=== PATIENT | female | born 1965 | race Caucasian/White ===

== ENCOUNTER 2023-12-23 17:08 | Inpatient (IN) | payer OTHER, SELFPAY ==
[2023-12-23] VITALS (32 sets, daily range): BP systolic 69–177; BP diastolic 10–133
--- NOTE | 2023-12-23 15:24 | ED.GENMED ---
History of Present Illness
General
Chief Complaint: Change in Mental Status
Source: ambulance crew
Time Seen by Provider: 12/23/23 15:16
Travel History
Have you had any contact with someone who has COVID-19?: No
Do you have any symptoms of coronavirus? Fever > 100 degrees, chills, cough, shortness of breath, sore throat, loss of taste or smell, muscle aches, or headache?: No
History of Present Illness
History of Present Illness:
58-year-old female presents to the emergency room for evaluation of altered mental status. Patient has a history of schizophrenia. She evidently also recently diagnosed with Parkinson's disease. Manic state the patient was started on a medication
for Parkinson's, [facility] pharmacy search does not have new medication listed as being filled through insurance. Per medics the patient began not acting herself about 4 days ago. Today she is not speaking but it is unclear exactly when the
nonverbal component began. Patient not answering questions.
Past History
Past History
ED Past Medical History: Other (Schizophrenia)
Social History
Tobacco: Non-smoker
Alcohol: Occasional
Family History
Family History: Negative Diabetes, Hypertension or CAD
Phy Exam
Physical Exam
Physical Exam:
General: Awake, Alert, nonverbal. No acute distress.
Vitals: Hypertensive
Head: Atraumatic
Eyes: Pupils equal, EOMI
Throat: Airway intact, no exudates
Neck: Trachea midline
Lungs: Clear and equal b/l
Heart: Regular rate, no murmurs
Abd: Soft, Nontender, No pulsatile mass
Neuro: Cranial nerves intact, patient will hold arms and legs up for extended period time, she does not respond verbally to any questions.
Skin: Warm, dry, no rash
Extremities: pulses equal b/l, no edema
Course
Orders/Labs/Results
Orders:
Orders
12/23/23 Breakfast
NPO
Allow oral meds: No
Allow clear liquids: No
12/23/23 15:16
Electrocardiogram (*1) Urgent
Reason for Study: Other
Other Reason for Exam: Possible Stroke
Cardiac Monitoring- Treatment ONCE
IV Insert/Care/Rem.- Treatment PRN
12/23/23 15:17
CT Head W/o Cont STROKE ALERT Urgent
Reason For Exam: aphasia
12/23/23 15:19
Alcohol Urgent
Cardiovascular Evaluation Urgent
Complete Blood Count/With Diff Urgent
Comprehensive Metabolic Panel Urgent
Ferritin Urgent
Folate Urgent
Glycohemoglobin (HgbA1c) Urgent
PTT Urgent
Prothrombin Time Urgent
TSH Reflex To Free T4 Urgent
Troponin I Urgent
Vitamin B12 Urgent
12/23/23 15:20
CT Head/Neck Ang STROKE ALERT Urgent
Comment:
Reason For Exam: aphasia
12/23/23 15:24
Speech Screening from Jaky Routine
12/23/23 15:25
Add On- LAB Routine
Tests Added?: folate, ferritin, TSH reflex, B12, hbA1c, lipid panel, alcohol
12/23/23 15:42
EEG Routine Urgent
Reason for Exam: altered mental status
12/23/23 15:50
NIH Stroke Scale As Directed
Neurological Checks As Directed
Frequency: Per unit guidelines
12/23/23 16:00
Aspirin 300 mg RECTAL DAILY
12/23/23 16:26
Potassium Chloride [KCl] 20 meq 0.9% Sodium Chloride 250 ml [Nss] 250 ml IV NOW
12/23/23 16:51
Admit/Transfer Patient As Directed
Co-Sign Provider:
Level of Care: Inpatient admission
Assign to:: ICU
Physician / Group: Anabella
Diagnosis: Acute/Sever Hyponatremia
Reason for Hospitalization: hypertonic saline
Expected length of stay greater than two midnights?: Yes
ELOS- Estimated Length of Stay in days: 3
I certify the patient meets the requirements for IP care: Yes
12/23/23 16:53
Code Status As Directed
Resuscitation Status: Full Code
Lorazepam [Ativan] 2 mg .ROUTE .STK-MED ONE
12/23/23 17:00
3% Sodium Chloride 250 ml [Sodium Chloride 3%] 250 ml IV ONCE
12/23/23 17:08
Levetiracetam Injectable [Keppra] 1,500 mg IV NOW STA
12/23/23 17:48
Osmolality, Random Urine Urgent
Date Specimen was Collected: 12/23/23
Time Specimen was Collected: 16:00
Urinalysis Reflex To Culture Routine
Date Specimen was Collected: 12/23/23
Time Specimen was Collected: 16:00
Urine Drug Abuse Screen Routine
Date Specimen was Collected: 12/23/23
Time Specimen was Collected: 16:00
Urine Sodium Urgent
Date Specimen was Collected: 12/23/23
Time Specimen was Collected: 16:00
12/23/23 18:05
Acetaminophen [Tylenol/Feverall] 650 mg RECTAL Q4HPRN PRN
Enoxaparin Sodium [Lovenox] 40 mg SC QPM
Lorazepam [Ativan] 1 mg IV Q4HPRN PRN
12/23/23 18:05
Service Captain Consult Routine
Consulting Provider: Cricket Avila
Was physician already notified: Yes
NEPHROLOGY CONSULT Routine
Consulting Provider: Christopher Rowe V.
Was physician already notified: Yes
NEUROLOGY CONSULT Routine
Consulting Provider: Luan Marquez
Was physician already notified: Yes
PSYCHIATRY CONSULT Routine
Consulting Provider: Salvador Finn
Was physician already notified: Yes
Activity As Directed
Activity Level: Bedrest
I&O [Intake/ Output] As Directed
Frequency: q12h
Precautions As Directed
Type of Precautions: Seizure
Vital Signs As Directed
Frequency: Per unit guidelines
Weight As Directed
Frequency: Daily
DX Deep Vein Thrombosis Video Routine
12/23/23 20:21
BMP [Basic Metabolic Panel] Q3H
12/23/23 23:00
BMP [Basic Metabolic Panel] Q3H
12/24/23 02:00
BMP [Basic Metabolic Panel] Q3H
12/24/23 05:00
BMP [Basic Metabolic Panel] Q3H
12/24/23 06:00
Complete Blood Count/No Diff IN AM
Cortisol, Random IN AM
12/24/23 08:00
BMP [Basic Metabolic Panel] Q3H
12/24/23 11:00
BMP [Basic Metabolic Panel] Q3H
12/24/23 14:00
BMP [Basic Metabolic Panel] Q3H
12/24/23 17:00
BMP [Basic Metabolic Panel] Q3H
Abnormal Lab Results
12/23/23
15:19
RBC 3.03 L 10^6/uL
(4.20-5.40)
Hgb 9.7 L g/dL
(12.0-16.0)
Hct 25.2 L %
(37.0-47.0)
MCH 32.0 H pg
(27.0-31.0)
MCHC 38.5 H g/dL
(33.0-37.0)
Absolute Neuts (auto) 6.9 H 10^3/uL
(1.4-6.5)
Absolute Lymphs (auto) 1.0 L 10^3/uL
(1.2-3.4)
Neutrophils % 82.0 H %
(42.2-75.2)
Lymphocytes % 11.2 L %
(20.5-51.1)
Sodium 106 L* mmol/L
(135-145)
Potassium 3.3 L mmol/L
(3.5-5.1)
Chloride 69 L mmol/L
(98-107)
Glucose 125 H mg/dl
(70-99)
Vitamin B12 979 H pg/ml
(239-931)
Folate > 20.0 H ng/ml
(2.76-20)
12/23/23 15:19
12/23/23 15:19
Vital Signs
Initial and Last Documented VS:
Initial Vital Signs
Pulse Resp BP Pulse Ox
111 18 177/95 99
12/23/23 15:12 12/23/23 15:12 12/23/23 15:12 12/23/23 15:12
Last Documented Vital Signs
Temp Pulse Resp BP Pulse Ox
98.3 F 73 14 88/59 97
12/23/23 18:54 12/23/23 22:30 12/23/23 22:30 12/23/23 22:30 12/23/23 22:30
MDM/Problems Addressed
Differential Diagnosis Includes:
CVA, sz, medication effect/adverse reaction, electrolyte abn,
MDM/Problems Addressed:
Patient presents to the emergency room for altered mental status and nonverbal. Patient made a stroke alert after initial evaluation as his acute ischemic event certainly on the differential. Dr. Marquez came to evaluate the patient. I did
discuss the patient's presentation with her and he did verify that she did not have a sudden onset of symptoms today but rather gradual onset over several days. Patient does have a history of schizophrenia but it is well-controlled on her
current medication regiment. Patient not a TNK candidate given the onset of symptoms was over several days. CTA did not show large vessel occlusion. Labs ultimately returned which showed the patient had profound hyponatremia. I initially
discussed the patient's presentation and treatment of hyponatremia with Dr. Brenner. Start hypertonic saline at 30 cc an hour. Patient will be admitted to the intensive care unit.
*Radiology
Radiology exam reviewed: radiology read reviewed
*Pulse Oximetry
Patient hypoxic: no
*EKG
Interpreted by ED Provider?: Yes
Heart Rate: 107
Rate: tachycardiac
Rhythm: sinus tachycardia
[place]: normal axis
Interval: normal interval
QRS Pattern: normal QRS
Ischemia: no ischemia
*Product Steward Interpretation
Rate: tachycardiac
Interpretation: abnormal
Rhythm: sinus tachycardia
*Critical Care Note
Total Time (30-74mins, 75-104mins- exclusive of procedures): 60 min
comment:
Critical care statement: A total of 60 minutes of critical care time was provided for this patient. This includes management of unstable vital signs, evaluation of the patient at bedside, reviewing the patient's pertinent medical records, discussion
with consultants, review of old EKGs and review of pertinent medical records. This time with separate from time utilized to perform the aforementioned documented procedures
Patient Management
Social determinants of health affecting care: Living situation and Other (Mental illness)
Discussion with other providers: Hospitalist
Update Note
Update Note:
1718: Called to room at about 1645 for pt having seizure activity. Pt was on EEG at the time. Pt postictal on my arrival. HR/BP/Pulse ox acceptable. 1mg of lorazepam given. Then I ordered 100ml of 3% saline over 12 minutes. Discussed with
Duncan who recommended 1500mg of keppra iv which was given as well. Discussed with Dr. Rowe who came to bedside. He agreed with hypertonic saline bolus. Repeat bmp in 15 to 30 minutes. Seizure activity did appear to vandana.
ED Attending Note
-
Portions of this chart may have been created with voice recognition software.� Occasional wrong word or��sound alike� substitutions may have occurred due to the inherent limitations of voice recognition software.
Discharge Plan
Departure
Patient Disposition: Admit
Date of Disposition: 12/23/23
Time of Disposition: 16:21
Admit to: ICU
Presentation/result/management discussed w/ accepting MD/DO: Hospitalist
Condition: Critical
Discharge Problem:
Acute hyponatremia
Interventions
Interventions:
*Risk Screen - Suicide Last Done: 12/23/23 15:12
*General Assessment Last Done: 12/23/23 15:12
*Neglect/Abuse Screening Last Done: 12/23/23 15:12
ED- Fall Risk Assessment Last Done: 12/23/23 15:20
*ED COVID-19 Vaccine History Last Done: 12/23/23 15:12
*Nursing Disposition Last Done: 12/23/23 18:36
ED- Pulmonary Assessment Last Done: 12/23/23 15:20
ED- Neurological Assessment Last Done: 12/23/23 15:20
ED- Cardiac Assessment Last Done: 12/23/23 15:20
ED Swallowing Screen Last Done: 12/23/23 15:20
Discharge Date and Time
Discharge Date/Time: 12/23/23 18:37
[2023-12-23 15:37] LABS: INR 1.01; PT 13.1 Sec (11.4-14.6)
[2023-12-23 15:38] LABS: APTT 28.5 Sec (23.4-35.0)
[2023-12-23 15:50] LABS: Troponin I < 0.012 ng/ml
--- NOTE | 2023-12-23 15:51 | CON.NEURO4 ---
Consultation - Neurology 4
-
CONSULTING PHYSICIAN: Berta Marquez
REFERRING PHYSICIAN: ER
DICTATED BY: Berta Marquez
DATE/TIME OF REQUEST: 12/23/23
DATE/TIME OF CONSULTATION: 12/23/23
Reason for Consultation: Stroke alert speech abnormality
History of Present Illness:
Patient is a 58-year-old woman with a past medical history of paranoid schizophrenia, hypertension, presenting to the hospital with encephalopathy and abnormal speech worsened today compared to previous days.
In speaking with patient's over the phone, patient has not been her normal self for around 7 days according to her . Around 1 week ago she started on amantadine for about 3 to 4 days and due to worsening mental status and seeming
like less talkative and less active it was stopped around 3 days ago. There have otherwise been no changes in medications. Patient has been on a stable regimen of hydrochlorothiazide, amlodipine, losartan, risperidone and sertraline.
Amantadine had been prescribed previously by primary care doctor and only taking on an intermittent basis, apparently for Parkinson's-like symptoms. She does have tremor.
Patient had been less talkative and not as responsive and seems to go from 60 to 0 miles an hour per her in the past 7 days, has not seen any overt loss of consciousness or seizure activity. No recent illnesses and seems normal p.o. intake.
She had a hair appointment earlier today and did not talk very much but was able to voice what kind of haircut she wanted.
In the past patient had an ER visit and seem to be on Invega around the year of 2012 but has not been on this medication in years. Has had psychiatric care at [facility]. Sees her PCP regularly. No history of TIA or stroke.
Sodium level 106 in the ED.
Past Medical History: Paranoid schizoprenia, drug induced parkinsonism, hypertension
Surgical History: Right ankle surgery
Family History: [place]
Social History: lives at home with her
Allergies: No known drug allergies
Review of Symptoms:
Unable to obtain with mental status
Physical Exam:
Middle-aged woman appears ill with altered mental status no overt distress, normocephalic with dry mucous membranes eyes are clear neck supple with no masses mildly rigid neck with no overt meningismus, heart rate regular breathing unlabored abdomen
soft nontender no lower extremity edema is seen
Neurologic Examination:
Patient is awake with eyes open spontaneously and does track the examiner throughout the room, there is paucity of spontaneous speech with occasionally some mouthing of words that are an audible, patient does occasionally show comprehension of
simple commands and she will stick out her tongue inconsistently to command.
Cranial nerves shows no ptosis, pupils 3 mm equal round react light bilaterally, blinks to threat in all quadrants of vision with lower quadrant tropia, resting gaze is midline and extraocular moods are full as she tracks examiner through the right,
face is grossly symmetric, unable to tell if any dysarthria present
Patient has resting tremor bilaterally in the wrists, mild cogwheel rigidity in the right wrist. No pronator drift patient is able to hold the arms above her head in a symmetric manner with no drift demonstrating at least symmetric 4/5 shoulder
abduction strength and is able to lift the legs above the bed and sustained them for 10 seconds showing at least 4/5 hip flexion strength bilaterally. Mild bradykinesia and parkinsonism is evident.
No clonus or hyperreflexia is present 2+ symmetric biceps triceps brachialis and patella
No incoordination or ataxia
Neuro Imaging:
CT head noncontrast unremarkable no acute changes of stroke or hemorrhage
CTA head and neck no intracranial occlusion or carotid stenosis or occlusion seen
Impressions
1. Encephalopathy is highly likely to be due to symptomatic hyponatremia which is severe.
2. Patient has history of paranoid schizophrenia maintained on fdc antipsychotics
3. 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
4. Recent starting of amantadine for above symptoms of parkinsonism appears to be the only recent medication change. Is on HCTZ. Amantadine has potential for SIADH and hyponatremia, additionally is on SSRI sertraline but has been on this for
years.
IV Tenecteplase/IAT candidacy: Not a candidate for tenecteplase due to not having diagnosis of acute ischemic stroke as the patient has severe hyponatremia as the most likely cause of her symptoms, no intracranial occlusion on CTA of the head and
neck not a candidate for IAT
Recommendations:
1. Would check EEG urgently
2. Urgent correction of symptomatic hyponatremia with close following of sodium to ensure no overcorrection
3. Hold any further doses of amantadine
4. Neurologic checks
5. Not recommending aspirin or MRI brain or treating as stroke
Discussed patient care with: ER
[2023-12-23 15:56] LABS: ALT (SGPT) 20 U/L (0-35); AST (SGOT) 32 U/L (14-36); Albumin 4.9 g/dl (3.5-5.0); Alkaline Phosphatase 113 U/L (38-126); Blood Urea Nitrogen 16 mg/dl (7-17); Calcium 9.4 mg/dl (8.4-10.2); Carbon Dioxide 26 mmol/L (22-30); Chloride 69 mmol/L (98-107); Glucose 125 mg/dl (70-99); HDL Cholesterol 100 mg/dl; LDL Cholesterol, Calculated 59 mg/dl; Potassium 3.3 mmol/L (3.5-5.1); Sodium 106 mmol/L (135-145); Total Bilirubin 0.8 mg/dl (0.2-1.3); Total Cholesterol 175 mg/dl (50-199); Total Protein 7.7 g/dl (6.3-8.2); Triglyceride 82 mg/dl (10-149); Very Low Density Lipoprotein 16 mg/dl (0-30); eGFR > 60.00
[2023-12-23 16:01] LABS: Alcohol None Detected
--- NOTE | 2023-12-23 16:33 | W.CON.NEPH ---
Consultation
-
Date/Time Consultation Requested: 12/23/2023 4:10 PM
Date/Time Consultation Performed: 12/23/2023 4:20pm
Requesting Provider: Anabella
Performing Provider: Soledad
Reason for Consultation: Hypoantremia (106)
Medical History
-
Chief Complaint: Hyponatremia
History of Present Illness:
The patient is a 58-year-old female with a past medical history of schizophrenia currently maintained on Zoloft amantadine and risperidone. She has a history of hypertension for which she has been maintained on the combinations of losartan
hydrochlorothiazide and amlodipine. The patient presented to the hospital today with change of mental status and a sodium of 106. The patient has not been her normal self for around 7 days according to her . Around 1 week ago she started
on amantadine for about 3 to 4 days and due to worsening mental status and seeming like less talkative and less active it was stopped around 3 days ago. There have otherwise been no changes in medications. Patient has been on a stable regimen of
hydrochlorothiazide, amlodipine, losartan, risperidone and sertraline.
Amantadine had been prescribed previously by primary care doctor and only taking on an intermittent basis, apparently for Parkinson's-like symptoms. She does have tremor.
Patient had been less talkative and not as responsive and seems to go from 60 to 0 miles an hour per her in the past 7 days, has not seen any overt loss of consciousness or seizure activity. No recent illnesses and seems normal p.o. intake.
She had a hair appointment earlier today and did not talk very much but was able to voice what kind of haircut she wanted.
Past Medical History
Paranoid schizophrenia
Hypertension
Social History
Tobacco: Non-Smoker
Alcohol: None
Family History
No chronic kidney disease
Allergies / Home Medications
Allergy/AdvReac Type Severity Reaction Status Date / Time
ham,aguirre , sausage,pork Allergy diarrhea Uncoded 04/06/13 06:10
roast
�Medication �Instructions �Recorded �Confirmed �Type
aspirin 325 mg tablet (Ginette 325 mg PO DAILY 06/20/11 04/06/13 History
Aspirin)
calcium carbonate 1,000 mg-vitamin 2 ea PO DAILY 06/20/11 04/06/13 History
D3 20 mcg (800 unit) tablet
fexofenadine-pseudoephedrine ER 1 ea PO DAILY 06/20/11 04/06/13 History
180 mg-240 mg tablet,ext.release
24 hr (Diana-D 24 Hour)
miconazole nitrate 2 % topical 1 applic topical BID 06/20/11 04/06/13 History
cream (Antifungal (miconazole))
paliperidone 9 mg tablet,extended 9 mg PO DAILY 04/06/13 04/06/13 History
release 24 hr (Invega)
Review of Systems
-
Unable to obtain full review of systems at this time due to: Patient Non Verbal
History Source: Patient and Family
All other systems: Negative unless noted
Constitutional: No Symptoms
EENT: No Symptoms
Respiratory: No Symptoms
Cardiac: No Symptoms
Abdomen/GI: No Symptoms
: No Symptoms
Musculoskeletal: No Symptoms
Skin: No Symptoms
Neurological: Other (Increasing confusion over the past 7 days)
Endocrine: No Symptoms
Hematologic/Lymphatic: No Symptoms
Physical Exam
Vital Signs
Vital Signs
Pulse Resp BP Pulse Ox
106 16 177/95 100
12/23/23 15:45 12/23/23 15:45 12/23/23 15:14 12/23/23 15:45
Lab Results
Sodium 106 mmol/L (135-145) L* 12/23/23 15:19
Potassium 3.3 mmol/L (3.5-5.1) L 12/23/23 15:19
Chloride 69 mmol/L (98-107) L 12/23/23 15:19
Carbon Dioxide 26 mmol/L (22-30) 12/23/23 15:19
BUN 16 mg/dl (7-17) 12/23/23 15:19
Creatinine 0.6 mg/dL (0.6-1.0) 12/23/23 15:19
eGFR > 60.00 12/23/23 15:19
Glucose 125 mg/dl (70-99) H 12/23/23 15:
Calcium 9.4 mg/dl (8.4-10.2) 12/23/23 15:
Albumin 4.9 g/dl (3.5-5.0) 12/23/23 15:
Physical Exam
General: Awake and alert but nonverbal,non toxic
HEENT: PERRL, EOMI, Anicteric, Conjunctivae Clear, Ear/Nose Intact, Hearing Normal, Oropharynx Clear/Moist, Dentition Intact, Facial Symmetry, Neck Supple, Neck: Trachea Midline, No JVD and No Thyromegaly, no Bruits
Respiratory: Clear to auscultation bilaterally with normal lung exersion
Cardiac: S1/S2 and Regular Rate/Rhythm
Breast: Deferred by me
Abdomen: Soft, Nontender, Nondistended, Normal Bowel Sounds and No Hepatosplenomegaly,obese
Rectal: Deferred by Provider
Genito-urinary: No Costovertebral Tenderness
Extremities: No Clubbing, No Cyanosis and No Edema
Skin: No Rash or open lesions
Neuro: Pupils reactive, gaze fixed forward, left arm tremor, follows some commands, can move all 4 limbs independently
Hematologic/Lymphatic: No Cervical Lymphadenopathy, No Submandibular Lymphadenopathy and No Supraclavicular Lymphadenopathy
Psych: Flat ,withdrawn, currently nonverbal
Vascular: plus 2 pedal and radial pulses
Data Reviewed
-
Radiology: Image Personally Visualized and interpreted and Report Reviewed by me
CT Scan: Report Reviewed by me (CT of head head and neck CTA reviewed noted 3 mm anterior communicating aneurysm, thyroid mass)
Medical Tests (Nuc Med, Echo etc): Other (EKG personally reviewed sinus tachycardic with)
Labs: Labs Reviewed by me (Basic metabolic panel urine osmolality CBC)
Old Records: Reviewed (Reviewed old records in electronic medical record from 04/06/13 sodium 130)
Assessment/Plan
-
Impression:
Metabolic encephalopathy with profound hyponatremia (106)
History of hypertension
History of paranoid schizophrenia
Plan:
Patient critically ill with neurological dysfunction with associated TME in the setting of profound hyponatremia
-Patient to be admitted to the intensive care unit
-Every 3 hour BMPs (calls to me)
-3% saline to be initiated at 20 cc/h for total of 250 cc
-Obtain TSH cortisol urine osmolality serum osmolality urine sodium
-With hold hydrochlorothiazide and all antipsychotics including sertraline at this
-Fluid restriction 1000 cc/day
-Will closely monitor for over rapid correction as patient is an increased risk for central pontine myelinolysis
-Sodium goal correction rate will be 8-10 mEq over the next 24-hours
-Total critical care time spent with patient 45-minutes
-
Total Time Spent with Patient (in minutes): 45 minutes critical care time spent with patient
[2023-12-23] MEDS: SODIUM CHLORIDE 3% 250 IV (16:44)
[2023-12-23 16:47] LABS: TSH Reflex To Free T4 0.98 uIU/ml (0.47-4.68)
--- NOTE | 2023-12-23 16:50 | HPS.HSE ---
Family Physician
-
Family Physician:
Chief Complaint
-
Change in Mental Status
History of Present Illness
Patient is a 58 y/o female with a past medical history of hypertension, paranoid schizophrenia, and parkinsonism who presents for altered mental status for about 1 week. Patient is a poor historian due to current nonverbal communication. Her
reports that she has taken amantadine intermittently in the past but was started on it again one week ago. This medication was discontinued after 3 days due to decline in mental status. Her states that she was talking and moving less than
normal. Today she was at the hairdresser and unable to tell the plastic technician what type of haircut she wanted but she has been nonverbal since arrival in the emergency department.
Medical History
Past Medical History
Past Medical History: Reports Other
Additional Past Medical History:
Essential Hypertension
Paranoid Schizophrenia
Drug-Induced Parkinsonism
Past Surgical History: Reports Other
Additional Past Surgical History:
Tonsillectomy
[place] Teeth
Social History
Unable to obtain full social history at this time due to: Acuity
Personal:
Living: With Family
Family History
Family History: Unable to Obtain
Allergies / Home Medications
Allergies reflects when Allergies were last updated in [facility].
Home Medications with original date entered in [facility]
Allergy/Medication List:
Allergies
Allergy/AdvReac Type Severity Reaction Status Date / Time
ham,aguirre , sausage,pork Allergy diarrhea Uncoded 04/06/13 06:10
roast
Home Medications
amlodipine 10 mg tablet 10 mg PO DAILY 12/23/23
hydrochlorothiazide 50 mg tablet 25 mg PO DAILY 12/23/23
losartan 100 mg tablet 100 mg PO DAILY 12/23/23
multivitamin 1 tab PO DAILY 12/23/23
risperidone 3 mg tablet 1.5 mg PO NOON 12/23/23
risperidone 3 mg tablet 4.5 mg PO QPM 12/23/23
sertraline 100 mg tablet 100 mg PO QPM 12/23/23
Review of Systems
-
Unable to obtain full review of systems at this time due to: Acuity
Physical Exam
Vital Signs
Vital Signs
Pulse Resp BP Pulse Ox
106 16 177/95 100
12/23/23 15:45 12/23/23 15:45 12/23/23 15:14 12/23/23 15:45
Physical Exam
General: Well Developed and Well Nourished
HEENT: NormoCephalic, Anicteric and Atraumatic
Respiratory: Clear and Non Labored Respirations
Cardiac: S1/S2 and Regular Rhythm
GI: Soft and Non Tender
Rectal: Deferred by Provider
Musculoskeletal: No Clubbing, No Cyanosis and No Edema
Skin: Warm and Dry
Neuro: Tremors (Fine tremors bilateral hands) and Other (Eyes are open, and she turns her head towards my voice. She follows some commands but very slowly. She remains non-verbal during my evaluation. )
Laboratory Results
-
Laboratory Results
PT 13.1 Sec (11.4-14.6) 12/23/23 15:19
INR 1.01 12/23/23 15:19
APTT 28.5 Sec (23.4-35.0) 12/23/23 15:19
Total Bilirubin 0.8 mg/dl (0.2-1.3) 12/23/23 15:19
AST 32 U/L (14-36) 12/23/23 15:19
ALT 20 U/L (0-35) 12/23/23 15:19
Alkaline Phosphatase 113 U/L (38-126) 12/23/23 15:19
Troponin I < 0.012 ng/ml 12/23/23 15:19
Data Reviewed
-
Lab Data: Labs Reviewed by me
Impression/Plan
-
Acute/Severe Hyponatremia
-Reviewed with Nephrology
-Admit to ICU
-Continue hypertonic saline
-Check BMP every 3 hours with results called to Nephrology
-Hold HCTZ, SSRI and Amantadine
-Fluid restriction 1000ml/day
-Check TSH, and Cortisol
-Check urine sodium and urine osmo
Seizure, likely secondary to hyponatremia
-Reviewed Neurology
-Patient received Keppra 1500mg IV in ED
-Continue Keppra 1500mg BID
-Continue seizure precautions
-Continue continuous EEG monitoring
Paranoid Schizophrenia
-Consult Psych
-Patient will likely require medication adjustments
-Hold Risperdal and Zoloft
Drug-Induced Parkinsonism
-Hold amantadine
Essential Hypertension
-Stop HCTZ due hyponatremia
-Hold amlodipine and losartan
-Monitor blood pressure
DVT proph: Lovenox
Code Status: Full Code
--- NOTE | 2023-12-23 16:51 | W.PN.UPDATE ---
Update Note
Progress Note Update
I saw and examined the patient.
The GOVERNMENT SALES MANAGER or PA's note was reviewed and I agree with the note.
Comment: 58-year-old female with a history of schizophrenia who lives independently who presents with confusion/change in mental status and was found to be severely hyponatremic.
177/95, 106, 16, 100% on RA
No acute distress, awake and alert but not oriented
Tachycardic, regular rhythm, normal S1-S2
EOMI, no scleral icterus
Clear to auscultation bilaterally
Cranial nerves II to XII are intact, nonfocal
Sodium 106
[address] brain: No acute intracranial abnormality.
Acute hyponatremia:
-Check serum and urine osmolality, urine creatinine and urine sodium
-Currently undergoing EEG
-3% normal saline now
-BMP every 3 hours with decisions to be made based on those results in real-time
-Seizure precautions
-Hold hydrochlorothiazide/SSRI/antipsychotics
-Case discussed with Dr. Rowe and the ICU charge nurse
-Will need psychiatric consultation
Total critical care time spent equals 32 minutes.
[2023-12-23] MEDS: KEPPRA 1500 MG IV (17:08)
[2023-12-23] MEDS: KCL 260 MEQ IV (17:13)
[2023-12-23 17:23] LABS: Folate > 20.0 ng/ml (2.76-20); Vitamin B12 979 pg/ml (239-931)
[2023-12-23 17:41] LABS: % Basophils 0.6 % (0-2); % Eosinophils 0.2 % (0-6); % Immature Granulocytes 0.4 % (0-0.5); % Lymphocytes 11.2 % (20.5-51.1); % Monocytes 5.6 % (1.7-9.3); Absolute Basophils 0.1 10^3/uL (0-0.2); Absolute Monocytes 0.5 10^3/uL (0.1-0.6); Absolute Neutrophils 6.9 10^3/uL (1.4-6.5); Hematocrit 25.2 % (37.0-47.0); Hemoglobin 9.7 g/dL (12.0-16.0); Mean Corp Hgb Conc. 38.5 g/dL (33.0-37.0); Mean Corpuscular Volume 83.2 fL (81.0-99.0); Mean Platelet Volume 8.7 fL (7.4-10.4); Nucleated Red Blood Cells % 0 %; Platelet Count 261 10^3/uL (130-400); Red Blood Cell Count 3.03 10^6/uL (4.20-5.40); Red Cell Dist. Width 11.6 % (11.5-14.5); White Blood Cell Count 8.5 10^3/uL (4.8-10.8)
[2023-12-23 18:02] LABS: Urine Albumin Negative (Neg - Trace); Urine Bilirubin Negative (Negative); Urine Character Clear (Clear); Urine Color Yellow; Urine Glucose Negative (Negative); Urine Ketone Negative (Negative); Urine Leukocyte Negative (Negative); Urine Nitrite Negative (Negative); Urine Occult Blood Negative (Negative); Urine Urobilinogen Negative (Neg - 1+)
[2023-12-23 18:06] LABS: Osmolality Urine 151 mOsm/kg (300-900)
--- NOTE | 2023-12-23 18:15 | CON.INTV ---
Consultation
Consultation Request
Date/Time Consultation Requested: 12-23-23
Date/Time Consultation Performed: 12-23-23
Requesting Provider: Hospitalist todd
Performing Provider: Dr Avila
Reason for Consultation: hyponatremia
Medical History
-
Chief Complaint: confusion
History of Present Illness:
Mrs Hafsa Harmon is a 58/W adm 12-22 with confusion for about 7 d LOG CHECK SCALER. Of note, h/o paraniod schizophrenia on risperidone and sertraline, coincidentally started amantadine for medication induced parkinsonism, this medication was discontinued
about 3-4 d due to confusion and decreased activity.
At ER, awake, no verbal response to questions, hypertensive, mild tachycardia, serum Na 106, Hgb 9.7, normal TSH. While at ER, witnessed sz while on EEG monitoring, given lorazepam IV, 3% saline IV, keppra IV. Head CT with no acute findings. Seen by
Neurology, rec to hold amantadine
Seen at ICU, awake, with parkinsonism related tremor, able to answer simple questions (full name, age, , marital status)
Past Medical History
Past Medical History: HTN and Psychiatric (paranoid schizophrenia)
Past Surgical History: Other (R ankle surgery)
Social History
Tobacco: Non-smoker
Alcohol: None
Drug: None
Personal:
Living: With Family
Family History
Family History: Unable to Obtain
Allergies / Home Medications
Allergies
Allergy/AdvReac Type Severity Reaction Status Date / Time
Pork/Porcine Containing AdvReac Diarrhea Verified 12/23/23 17:23
Products (ham,aguirre,sausage,pork)
Home Medications
�Medication �Instructions �Recorded �Confirmed �Last Taken �Type
amlodipine 10 mg tablet 10 mg PO DAILY 12/23/23 12/23/23 Unknown History
hydrochlorothiazide 50 mg tablet 25 mg PO DAILY 12/23/23 12/23/23 Unknown History
losartan 100 mg tablet 100 mg PO DAILY 12/23/23 12/23/23 Unknown History
multivitamin 1 tab PO DAILY 12/23/23 12/23/23 Unknown History
risperidone 3 mg tablet 1.5 mg PO NOON 12/23/23 12/23/23 Unknown History
risperidone 3 mg tablet 4.5 mg PO QPM 12/23/23 12/23/23 Unknown History
sertraline 100 mg tablet 100 mg PO QPM 12/23/23 12/23/23 Unknown History
Review of Systems
-
Unable to Obtain full review of systems at this time due to: Acuity
Vitals / Labs / Diagnostic Testing
Vital Signs
Pulse Resp BP Pulse Ox
115 15 95/67 98
12/23/23 17:50 12/23/23 17:50 12/23/23 17:50 12/23/23 17:30
Lab Data
12/23/23 15:19
Laboratory Results
12/23/23
15:19
PT 13.1
INR 1.01
APTT 28.5
Diagnostic Testing:
Physical Exam
-
HEENT: Normocephalic and Moist Mucous Membranes
Cardiovascular: Regular Rhythm, Murmur (n) and Peripheral Edema
Respiratory: Clear and Non-Labored Respirations
GI: Soft, Non Distended and Non Tender
Neurology: Awake, Oriented, No Motor Deficits and Tremors
Skin: Warm
General: Respiratory Distress (n)
Assessment
-
Assessment:
Mrs Hafsa Harmon is a 58/W adm 12-22 with confusion for about 7 d LOG CHECK SCALER. Of note, h/o paraniod schizophrenia on risperidone and sertraline, coincidentally started amantadine for medication induced parkinsonism, this medication was discontinued
about 3-4 d due to confusion and decreased activity. At ER, awake, no verbal response to questions, hypertensive, mild tachycardia, serum Na 106, Hgb 9.7, normal TSH. While at ER, witnessed sz while on EEG monitoring, given lorazepam IV, 3% saline
IV, keppra IV. Head CT with no acute findings. Seen by Neurology, rec to hold amantadine
Impression:
Severe hyponatremia
Suspected due to amantadine
Witnessed sz event at ER
Conditions LOG CHECK SCALER:
Paranoid schizophrenia, on risperidone and sertraline
HTN
Drug induced parkinsonism
R ankle surgery
Plan:
O2 protocol as needed
Asp precs
Appreciate Nephrology evaluation
3% saline administration
Na correction goal set at 8-10 mEq over next 24 hrs, check q3h
Fluid restriction
Hold risperidone, sertraline, HCTZ
Amantadine already held 3-4 d LOG CHECK SCALER
Continue levetiracetam for new onset sz in setting of profound hyponatremia
Continuous EEG in place
DVT prophylaxis
Critical care time: 35 min
[2023-12-23 18:18] LABS: Urine Sodium 35 mmol/L (30-90)
[2023-12-23 18:25] LABS: Blood Urea Nitrogen 13 mg/dl (7-17); Calcium 8.9 mg/dl (8.4-10.2); Carbon Dioxide 24 mmol/L (22-30); Chloride 72 mmol/L (98-107); Glucose 155 mg/dl (70-99); Iron 93 ug/dl (37-170); Magnesium 1.7 mg/dl (1.6-2.3); Potassium 3.5 mmol/L (3.5-5.1); Sodium 108 mmol/L (135-145); eGFR > 60.00
[2023-12-23 18:34] LABS: Percent Saturation 30 % (20-50); Total Iron Binding Capacity 301 ug/dl (265-497)
--- NOTE | 2023-12-23 18:47 | PTCARENOTE ---
Pt received from ED for hyponatremia, seizure activity witness in the ED with EEG monitoring, no central line placed, PIV x2, Ra now on 2Lnc, no seizure acitivies since being admitted to ICU, Q3hr BMP last set completed at 1730 next set @ 2029 all
result to be reported to Dr. Rowe (Nephro) on-call. AAox2, minimal verbal communication hard to complete admission assessment, following minimal commands, lauren placed in ICU for retention of 750ml in the ED, immediate output of 400ml. VSS, NSS,
BP 117/85, ST 108, RR 16, Tmax 98.3. Will continue observation in the ICU.
[2023-12-23 18:49] LABS: Amphetamines Negative (Negative); Barbiturates Negative (Negative); Benzodiazepines Negative (Negative); Buprenorphine Negative (Negative); Cocaine Negative (Negative); Marijuana Negative (Negative); Methadone Negative (Negative); Methamphetamines Negative (Negative); Opiates Negative (Negative); Phencyclidine Negative (Negative); Tricyclic Antidepressants Negative (Negative)
[2023-12-23] MEDS: ATIVAN 2 MG IV (19:33)
[2023-12-23] MEDS: NSS (PRESERVATIVE FREE) 1 ML IV (19:33)
--- NOTE | 2023-12-23 19:57 | EEG.RPT ---
Electroencephalogram Report
Recording
Date of EE12/23/23
Type of EEG: Routine
Length of EEG recordin mins
Done with Video Recording: Yes
Patient Status: Emergency Room
Hyperventilation Performed: No
Photic Stimulation Performed: Yes
Report
METHODS
A 21 channel digitized electroencephalogram was performed at [facility]. The 10/20 international system of electrode placement was used. In addition to EEG, the patient was monitored for EKG. The duration of the recording was 41 minutes.
BACKGROUND
During the awake state, with the eyes closed, the background consisted of a normal amplitude, 9 Hertz posterior reactive rhythm that attenuated appropriately with eye opening.
ABNORMAL EEG ACTIVITY
This EEG is abnormal due to the presence of generalized periodic epileptiform discharges, 1-2Hz in frequency lasting generally 1-10 seconds in duration but up to 30 seconds in duration. During some of this time period, the patient exhibited upper
body tremor, blinking and lip quivering. At 4:51pm she had a clinical seizure consisting up 'head turning followed by her arms up' that began as right hemispheric predominant theta range slowing that evolvied to rythmic delta range slowing followed
by diffuse obscuration of the background due to severe muscle artfiact, then severe slowing followed by diffuse attentuation of the background. This seizure lasted about 1 minute in duration. At 4:54pm, Ativan was given. At 5:08pm she began having
right hand shaking. At 5:09pm, Keppra was given. At 5:11pm, bitemporal 4-5Hz rhythmic slowing was noted that evolved over time, lasting 3 minutes in total.
INTERPRETATION AND CLINICAL CORRELATION
This EEG is abnormal due to the presence of both nonconvulsive and convulsive seizure activity.
--- NOTE | 2023-12-23 20:00 | PTCARENOTE ---
Rec'd pt from previous shift, admitted for hyponatremia. Pt obtunded on previous shift. Upon assessment pt opened eyes, slow to respond, but answered questions appropriately and followed simple commands. Continuous EEG as ordered. Call from Neuro to
report seizure activity seen on EEG--and Ativan ordered and given. Tremors at baseline 2/2 Parkinson's. Afebrile (thermistor lauren), NSR on monitor. MAP goal 65, emy on standby if needed to maintain. Currently maintaining without intervention.
Bilateral PIVs, 3% saline as ordered. BMP q3h. Will report result to Dr Rowe as ordered. 2L nasal cannula. Clear to ausc. NPO status maintained. Lauren draining clear yellow urine. Will monitor.
[2023-12-23] MEDS: LOVENOX 40 MG SC (20:25)
[2023-12-23 21:01] LABS: Blood Urea Nitrogen 13 mg/dl (7-17); Carbon Dioxide 28 mmol/L (22-30); Chloride 76 mmol/L (98-107); Glucose 116 mg/dl (70-99); Potassium 3.8 mmol/L (3.5-5.1); Sodium 111 mmol/L (135-145); eGFR > 60.00
--- NOTE | 2023-12-23 21:20 | W.PN.UPDATE ---
Addendum entered and electronically signed by Luna Hart, 12/24/23 11:25:
Reviewed EEG throgh 11:20am, no seizures noted; will c/t follow.
Addendum entered and electronically signed by Luna Hart, DO 12/24/23 07:06:
Reviewed cEEG through 7am, no further electrographic seizure noted. Will c/t follow.
Original Note:
Update Note
Progress Note Update
Reviewed cEEG through 9:15pm; ongoing rhythmic epileptiform activity and at times electrographic seizures until ~7:40pm; no seizure activity since that time. Extra dose of Ativan given at ~7:33pm. Will c/t follow.
[2023-12-23 23:56] LABS: Blood Urea Nitrogen 14 mg/dl (7-17); Calcium 8.9 mg/dl (8.4-10.2); Carbon Dioxide 29 mmol/L (22-30); Chloride 78 mmol/L (98-107); Glucose 101 mg/dl (70-99); Potassium 3.5 mmol/L (3.5-5.1); Sodium 112 mmol/L (135-145); eGFR > 60.00
[2023-12-24] VITALS (57 sets, daily range): BP systolic 87–117; BP diastolic 50–93
--- NOTE | 2023-12-24 00:30 | PTCARENOTE ---
Sodium 112, made aware. 3% bag finished at this time. No additional 3% ordered. Will recheck BMP in [address] Rowe. No further seizure activity seen on EEG as per neurology. Pt drowsy from Ativan, responds to verbal direction, but
dozes back off. Neuro checks completed, but NIH difficult to obtain. Pt remains oriented to self/birthday/year and follows simple commands. Turned/repositioned q2h. Will continue to monitor closely and trend labs.
[2023-12-24 05:10] LABS: Blood Urea Nitrogen 13 mg/dl (7-17); Calcium 8.9 mg/dl (8.4-10.2); Carbon Dioxide 31 mmol/L (22-30); Chloride 80 mmol/L (98-107); Glucose 86 mg/dl (70-99); Potassium 3.6 mmol/L (3.5-5.1); Sodium 116 mmol/L (135-145); eGFR > 60.00
[2023-12-24 05:26] LABS: Hematocrit 22.8 % (37.0-47.0); Hemoglobin 8.5 g/dL (12.0-16.0); Mean Corp Hgb Conc. 37.3 g/dL (33.0-37.0); Mean Corpuscular Hgb 31.6 pg (27.0-31.0); Mean Corpuscular Volume 84.8 fL (81.0-99.0); Mean Platelet Volume 8.9 fL (7.4-10.4); Platelet Count 253 10^3/uL (130-400); Red Blood Cell Count 2.69 10^6/uL (4.20-5.40); Red Cell Dist. Width 11.7 % (11.5-14.5); White Blood Cell Count 7.3 10^3/uL (4.8-10.8)
[2023-12-24 05:35] LABS: Cortisol, Random 8.2 ug/dl
--- NOTE | 2023-12-24 05:40 | PTCARENOTE ---
AM labs sent. NA 116. Dr Rowe made aware as well as TIFF Kamara. Will recheck at 0800.
--- NOTE | 2023-12-24 07:23 | W.PN.INTV ---
Today's Communication / Plan
Recommendations
EEG
Levetiracetam
Fluid restriction
Assessment
-
Assessment:
Mrs Hafsa Harmon is a 58/W adm 12-22 with confusion for about 7 d KILN REMOVER. Of note, h/o paraniod schizophrenia on risperidone and sertraline, coincidentally started amantadine for medication induced parkinsonism, this medication was discontinued
about 3-4 d due to confusion and decreased activity. At ER, awake, no verbal response to questions, hypertensive, mild tachycardia, serum Na 106, Hgb 9.7, normal TSH. While at ER, witnessed sz while on EEG monitoring, given lorazepam IV, 3% saline
IV, keppra IV. Head CT with no acute findings. Seen by Neurology, rec to hold amantadine
Impression:
Severe hyponatremia
Suspected due to amantadine
Witnessed sz event at ER
UDS negative
Conditions KILN REMOVER:
Paranoid schizophrenia, on risperidone and sertraline
HTN
Drug induced parkinsonism
R ankle surgery
Plan:
O2 protocol as needed
Asp precs
Adm CXR without infiltrates
Appreciate Nephrology evaluation
Adm serum Na 106, currently at 116
Normal TSH and random cortisol
3% saline administration upon amd
Fluid restriction
Holding risperidone, sertraline, HCTZ
Amantadine already held 3-4 d KILN REMOVER
Interim hypotension after lorazepam last evening
Did not require pressor
Continue levetiracetam for new onset sz in setting of profound hyponatremia
EEG showed ongoing rhythmic epileptiform activity until 7:40 pm (ativan dose given at 7:33 pm)
Neurology following closely
DVT prophylaxis
Critical care time: 35 min
Subjective Dataa
Subjective Data
Date of Service:
Date of Service: December 24, 2023
Chief Complaint: Head Bone Grinder Follow Up
Subjective:
present at bedside
Case discussed with the neurology and nephrology consultants at bedside
EEG review the neurologist, improved
Review of Systems
General: Other (limited historian, just got dose of levetiracetam)
Objective Data
Data Reviewed
Vital Signs / I&O / Oxygen:
Vital Signs
Temp Pulse Resp BP Pulse Ox
97.2 F 75 12 116/60 99
12/24/23 03:00 12/24/23 06:30 12/24/23 06:30 12/24/23 06:30 12/24/23 06:30
Intake and Output
12/23/23 12/24/23 12/25/23
06:59 06:59 06:59
Intake Total 120 / 120
Output Total 1510 / 1510
Balance -1390 / -1390
SaO2 99
Nasal Cannula flow liters per 2
minute
Physical Exam
General: Respiratory Distress (n)
HEENT: Normocephalic and Moist Mucous Membranes
Cardiovascular: Regular Rhythm and Peripheral Edema (n)
Respiratory: Clear, Non-Labored Respirations and Stridor (n)
GI: Soft, Non Distended and Non Tender
Neurology: Awake and Tremors
Skin: Warm
Labs/Micro/Reports
Lab Data
12/24/23 04:08
Laboratory Results
12/23/23
15:19
PT 13.1
INR 1.01
APTT 28.5
[2023-12-24] MEDS: KEPPRA 1500 MG IV ×2 (08:14→20:03)
[2023-12-24 08:59] LABS: Blood Urea Nitrogen 12 mg/dl (7-17); Carbon Dioxide 32 mmol/L (22-30); Chloride 81 mmol/L (98-107); Glucose 89 mg/dl (70-99); Potassium 3.7 mmol/L (3.5-5.1); Sodium 116 mmol/L (135-145); eGFR > 60.00
--- NOTE | 2023-12-24 09:00 | W.PN.NEPH.PH ---
Today's Communication / Plan
-
Follow electrolytes every 4 hours
Fluid restrictf once po
Pressor support to keep MAP 65 or greater
3% saline currently on
Assessment/Plan
-
Impression:
Metabolic encephalopathy with profound hyponatremia (106)
History of hypertension
History of paranoid schizophrenia
Plan:
Patient critically ill with neurological dysfunction with associated TME in the setting of profound hyponatremia
-Patient with seizure last evening requiring 100 cc bolus of hypertonic saline, Ativan and Keppra
-Status post hypertonic saline infusion with repeat sodium at 116, no further seizure activity noted since last pm
-Currently holding further 3% at this time
-Patient mental status drastically improved
-Maintain fluid restriction
-Every 4 hour electrolytes to be monitored
-Urine osmolality of 152 consistent with only partial ADH response
-Obtained TSH cortisol urine osmolality serum osmolality urine sodium
-With hold hydrochlorothiazide and all antipsychotics including sertraline at this time
-Fluid restriction 1000 cc/day
-Will closely monitor for over rapid correction as patient is an increased risk for central pontine myelinolysis
-Sodium goal correction rate will be 8-10 mEq over the next 24-hours
-Maintain pressor support for hypotension
-Trying to avoid aggressive IV fluid repletion due to risk of fluctuation serum sodium levels
-Total critical care time spent with patient 31-minutes
-
Total Time Spent with Patient (in minutes): 31
-
-
Date of Service: December 24, 2023
CC / HPI / ROS
-
Chief Complaint:
Hyponatremia
History of Present Illness:
Serum sodium rise of 106 to 116 over past 18 hours
Hemodynamically labile on pressor support
Review of Systems:
Nonoliguric via Mckenna
No chest pain or shortness of breath
Mentation improved
Labs
-
Labs:
WBC 7.3 10^3/uL (4.8-10.8) 12/24/23 04:08
RBC 2.69 10^6/uL (4.20-5.40) L 12/24/23 04:08
Hgb 8.5 g/dL (12.0-16.0) L 12/24/23 04:08
Hct 22.8 % (37.0-47.0) L 12/24/23 04:08
Plt Count 253 10^3/uL (130-400) 12/24/23 04:08
eGFR > 60.00 12/24/23 08:22
Albumin 4.9 g/dl (3.5-5.0) 12/23/23 15:19
Physical Exam
-
Vital Signs:
Vital Signs
Temp Pulse Resp BP Pulse Ox
97.7 F 75 12 116/60 99
12/24/23 07:37 12/24/23 06:30 12/24/23 06:30 12/24/23 06:30 12/24/23 06:30
Cardiovascular:: Regular rate and rhythm
Respiratory:: Bilateral: CTA
Lung Excursion:: Normal
Abdomen:: Nontender and Soft
Bowel Sounds:: Normal
Extremity Edema:: None: Bilateral:
Mckenna Catheter: Yes
Other Findings::
Mental status decreased again no active seizure
--- NOTE | 2023-12-24 09:23 | W.PN.HOSP.TC ---
Today's Communication/Plan
-
see bold
Assessment / Plan
Assessment / Plan
Gen: NAD, Awake and alert
Eyes: EOMI, PERRLA, no scleral icterus.
Neck: supple.
CV: RRR, +S1/S2, no m/r/g.
Resp: CTAB, no rales, wheezes, or rhonchi.
Abd: +BS, soft, NT, ND
Skin: No rashes.
Neuro: CN 2-12 intact, non-focal.
Psych: mildly flat affect.
EEG: abnormal due to the presence of both nonconvulsive and convulsive seizure activity
Hyponatremia:
-with seizure activity due to severe hyponatremia, Keppra started, neuro following, cEEG now without seizure activity
-holding hydrochlorothiazide/SSRI/antipsychotics
-s/p 3% NS
-cont to trend Na (BMP Q3H) with goal of no more than 8-12mmol/L spinning frame changer 24 hours
-goal is not to exceed Na 118 today
-nephrology following
Paranoid Schizophrenia:
-Consult Psych
-Patient will likely require medication adjustments
-Holding Risperdal and Zoloft
Drug-Induced Parkinsonism:
-Holding amantadine
Essential Hypertension
-HCTZ stopped due hyponatremia (will never restart)
-Holding amlodipine and losartan
FULL/Lovenox
Total critical care time spent = 31 min
Anticipated Discharge: > 48 hours
Subjective/Interval History
-
Date of Service: December 24, 2023
Pt states she feels 'tired.'
Objective Data
-
Labs:
Laboratory Results
12/23/23 12/24/23 12/24/23
23:22 02:00 04:08
WBC 7.3
Hgb 8.5 L
Hct 22.8 L
Plt Count 253
Sodium 112 L* Cancelled 116 L*
Potassium 3.5 Cancelled 3.6
Chloride 78 L Cancelled 80 L
Carbon Dioxide 29 Cancelled 31 H
BUN 14 Cancelled 13
Creatinine 0.6 Cancelled 0.6
Glucose 101 H Cancelled 86
Calcium 8.9 Cancelled 8.9
12/24/23 12/24/23 12/24/23
08:22 11:00 14:00
WBC
Hgb
Hct
Plt Count
Sodium 116 L* Pending Pending
Potassium 3.7 Pending Pending
Chloride 81 L Pending Pending
Carbon Dioxide 32 H Pending Pending
BUN 12 Pending Pending
Creatinine 0.6 Pending Pending
Glucose 89 Pending Pending
Calcium 9.0 Pending Pending
12/24/23
17:00
WBC
Hgb
Hct
Plt Count
Sodium Pending
Potassium Pending
Chloride Pending
Carbon Dioxide Pending
BUN Pending
Creatinine Pending
Glucose Pending
Calcium Pending
Vital Signs:
Vital Signs
Temp Pulse Resp BP Pulse Ox
97.7 F 75 12 116/60 99
12/24/23 07:37 12/24/23 06:30 12/24/23 06:30 12/24/23 06:30 12/24/23 06:30
I&O
12/23/23 12/24/23 12/25/23
06:59 06:59 06:59
Intake Total 120 / 120
Output Total 1510 / 1510
Balance -1390 / -1390
--- NOTE | 2023-12-24 09:54 | PTCARENOTE ---
Patient rceived this am. Assessment as documented. Pt wakes up and answers questions slowly but appropriately. KENNEDY. Follows commands. Face and upper extremities tremulous. at bedside. Update given.
[2023-12-24 10:34] LABS: Glycohemoglobin (HgbA1c) 5.4 % (4.0-5.6)
--- NOTE | 2023-12-24 11:04 | W.PN.NEURO.1 ---
Today's Communication / Plan
-
continue cEEG, Keppra
Neuro Assessment/Plan
Assessment
Impressions
1. Encephalopathy is highly likely to be due to profound symptomatic hyponatremia. She has had a convulsive seizure and nonconvulsive seizure activity seen on EEG, provoked by her hyponatremia. Her EEG is improving; she has been seizure free
since about 7:40pm yesterday evening.
2. 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
3. 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
4. Recent starting of amantadine for above symptoms of parkinsonism appears to be the only recent medication change. Is on HCTZ. Amantadine has potential for SIADH and hyponatremia, additionally is on SSRI sertraline but has been on this for
years.
CT head noncontrast unremarkable no acute changes of stroke or hemorrhage
CTA head and neck no intracranial occlusion or carotid stenosis or occlusion seen
IV Tenecteplase/IAT candidacy: Not a candidate for tenecteplase due to not having diagnosis of acute ischemic stroke as the patient has severe hyponatremia as the most likely cause of her symptoms, no intracranial occlusion on CTA of the head and
neck not a candidate for IAT
cEEG update note:
From yesterday evening: ongoing rhythmic epileptiform activity and at times electrographic seizures until ~7:40pm; no seizure activity since that time. Extra dose of Ativan given at ~7:33pm.
ED EEG note from 12/22:
This EEG is abnormal due to the presence of generalized periodic epileptiform discharges, 1-2Hz in frequency lasting generally 1-10 seconds in duration but up to 30 seconds in duration. During some of this time period, the patient exhibited upper
body tremor, blinking and lip quivering. At 4:51pm she had a clinical seizure consisting up 'head turning followed by her arms up' that began as right hemispheric predominant theta range slowing that evolved to rhythmic delta range slowing followed
by diffuse obscuration of the background due to severe muscle artifact, then severe slowing followed by diffuse attenuation of the background. This seizure lasted about 1 minute in duration. At 4:54pm, Ativan was given. At 5:08pm she began having
right hand shaking. At 5:09pm, Keppra was given. At 5:11pm, bitemporal 4-5Hz rhythmic slowing was noted that evolved over time, lasting 3 minutes in total.
Plan
Recommendations:
1. continuous EEG; continue Keppra 1500mg q12 while still at risk for seizures; rescue Ativan ordered for any further seizures
2. sodium improving; nephro managing; avoid rapid correction
3. Hold any further doses of amantadine
4. Neurologic checks
5. Not recommending aspirin or MRI brain or treating as stroke
Reviewed with patient's at bedside, nursing and nephro.
Critical care time 45 mins
Subjective/Objective
Subjective Data
Date of Service: December 24, 2023
had seizures yesterday, EEG improved significantly since ~7:40pm yesterday evening
Objective Data
Vital Signs
Temp Pulse Resp BP Pulse Ox
97.7 F 73 12 107/59 100
12/24/23 07:37 12/24/23 09:45 12/24/23 09:45 12/24/23 09:45 12/24/23 09:45
Lab Results
12/24/23 04:08
PT 13.1 Sec (11.4-14.6) 12/23/23 15:19
INR 1.01 12/23/23 15:19
APTT 28.5 Sec (23.4-35.0) 12/23/23 15:19
Sodium 116 mmol/L (135-145) L* 12/24/23 08:22
Potassium 3.7 mmol/L (3.5-5.1) 12/24/23 08:22
BUN 12 mg/dl (7-17) 12/24/23 08:22
Glucose 89 mg/dl (70-99) 12/24/23 08:22
Calcium 9.0 mg/dl (8.4-10.2) 12/24/23 08:22
LDL Cholesterol, Calc 59 mg/dl 12/23/23 15:19
Vitamin B12 979 pg/ml (239-931) H 12/23/23 15:19
Ur Buprenorphine Negative (Negative) 12/23/23 17:48
Patient Allergies
Pork/Porcine Containing Products Allergy (Verified 12/23/23 22:09)
Diarrhea (ham,aguirre,sausage,pork)
Physical Exam
-
Patient is lethargic, opens eyes spontaneously and does track the examiner throughout the room. She followed basic commands. +lip quivering which her says is not new for her. Mute throughout exam.
Cranial nerves shows no ptosis, pupils 3 mm equal round react light bilaterally, blinks to threat; resting gaze is midline; EOM appear grossly intact, face is grossly symmetric, unable to tell if any dysarthria present
No tremor today. She is able to hold the arms above her head in a symmetric manner with no drift demonstrating at least symmetric 4/5 shoulder abduction strength and is able to lift the legs above the bed and sustained them for 10 seconds showing at
least 4/5 hip flexion strength bilaterally. Mild bradykinesia and parkinsonism is evident.
No clonus or hyperreflexia is present 2+ symmetric biceps triceps brachialis and patella
No incoordination or ataxia
--- NOTE | 2023-12-24 11:10 | CHAP ---
Hafsa was sleeping comfortably. Her described the symptoms he saw that prompted him to call 911. He also cares for another family member, and seems to be coping with the situation. Emotional support provided.
--- NOTE | 2023-12-24 13:55 | W.PN.UPDATE ---
Update Note
Progress Note Update
58 yo lady admitted with hyponatremia. She is drowsy and falling to sleep so I was able to talk to her who was a good bridge maintainer. He states she sees Kathe GOTTLIEB at [facility] for treatment of chronic paranoid schizophrenia. She was
apparently stable on Risperdal 5.5 mg daily in combination with Zoloft 100 mg daily. Last psychiatric hospitalization was in 2011 and her psychosis was well controlled. without the prescriber's knowledge gave her Amantadine 100 mg daily for
6 days apparently as he noticed tremors of extremities; she has taken that medication in the past sporadically.
Her sodium level is 116 presently.
I cannot do adequate examination as she is falling to sleep.
She in presently not acutely psychotic or agitated.
Certainly she cannot be on the Zoloft or any SSRI or NSRI due to the hyponatremia, Risperdal in rare case could cause seizures so for now we can hold these meds.
Amantadine can cause rarely inappropriate antidiuretic hormone secretion secretion and resultant hyponatremia.
Will F/U.
[2023-12-24 14:49] LABS: Blood Urea Nitrogen 11 mg/dl (7-17); Calcium 9.2 mg/dl (8.4-10.2); Carbon Dioxide 33 mmol/L (22-30); Chloride 81 mmol/L (98-107); Glucose 87 mg/dl (70-99); Potassium 3.7 mmol/L (3.5-5.1); Sodium 118 mmol/L (135-145); eGFR > 60.00
--- NOTE | 2023-12-24 15:51 | PTCARENOTE ---
Patient sleeping off and on. Oriented to place and time when awake. KENNEDY. Tolerating sips of water. No complaints.
[2023-12-24 17:50] LABS: Blood Urea Nitrogen 12 mg/dl (7-17); Calcium 9.6 mg/dl (8.4-10.2); Carbon Dioxide 30 mmol/L (22-30); Chloride 83 mmol/L (98-107); Glucose 91 mg/dl (70-99); Potassium 3.6 mmol/L (3.5-5.1); Sodium 120 mmol/L (135-145); eGFR > 60.00
[2023-12-24] MEDS: LOVENOX 40 MG SC (18:34)
[2023-12-24] MEDS: D5W 1000 IV (18:38)
--- NOTE | 2023-12-24 20:51 | EEGC.RPT ---
Continuous EEG Report
Recording
Start Date of Data Reviewed: 12/23/23
Start Time of Data Reviewed: 17:21
End Date of Data Reviewed: 12/24/23
End Time of Data Reviewed: 17:21
Type of EEG: Continuous
Done with Video Recording: Yes
Study Sequence: Initiation of Study
Report
METHODS
A 21 channel digitized electroencephalogram was performed at [facility]. The 10/20 international system of electrode placement was used. In addition to EEG, the patient was monitored for EKG. The duration of the recording was 24 hours.
BACKGROUND
During the awake state, with the eyes closed, the background consisted of a normal amplitude, 9 Hertz posterior reactive rhythm that attenuated appropriately with eye opening.
ABNORMAL EEG ACTIVITY
This EEG is abnormal due to the presence of bifrontally predominant periodic epileptiform spike-wave discharges, 1-2Hz in frequency lasting generally 1-10 seconds in duration but up to 15 minutes. Right parietal predominant rhythmic theta range
slowing that evolved to rhythmic delta range slowing was also seen at times consistent with electrographic seizure. These events improved by ~7:40pm on 12/22 but then recurred starting the evening of 12/23 and occurred intermittently until the end of
the recording.
INTERPRETATION AND CLINICAL CORRELATION
This EEG is abnormal due to the presence of nonconvulsive seizure activity.
[2023-12-24 21:51] LABS: Blood Urea Nitrogen 13 mg/dl (7-17); Calcium 9.3 mg/dl (8.4-10.2); Carbon Dioxide 28 mmol/L (22-30); Chloride 83 mmol/L (98-107); Glucose 128 mg/dl (70-99); Potassium 3.4 mmol/L (3.5-5.1); Sodium 118 mmol/L (135-145); eGFR > 60.00
--- NOTE | 2023-12-24 22:04 | W.PN.UPDATE ---
Addendum entered and electronically signed by Luna Hart, DO 12/25/23 22:00:
Read cEEG through 10pm; no seizures noted. Severe muscle/movement/rhythmic eye blinking and tremor artifact. Will c/t follow.
Addendum entered and electronically signed by Luna Hart, DO 12/25/23 08:06:
EEG improved overnight with addition of Ativan, Vimpat; reviewed through 8am; no recent seizures.
Original Note:
Update Note
Progress Note Update
cEEG Update Note
Reviewed cEEG through 9:30pm which showed intermittent nonconvulsive seizure activity, at times consistent with nonconvulsive status epilepticus; confirmed with nursing that the patient has had no convulsive activity associated. Reviewed with
Soledad and Dr. Avila--adding on Vimpat 150mg q12. Also reviewed with the patient's nurse. Will c/t follow.
--- NOTE | 2023-12-24 22:20 | W.PN.UPDATE ---
Update Note
Progress Note Update
Updated Dr. Rowe, substation operator chief on repeat BMP, Na 118 from 120, currently infusing D5W at 60cc/hr, recommendation is to stop IVF D5W currently infusing and repeat labs in the AM.
[2023-12-24] MEDS: VIMPAT 150 MG IV (22:23)
[2023-12-24] MEDS: ATIVAN 2 MG IV (22:25)
[2023-12-24] MEDS: NSS (PRESERVATIVE FREE) 1 ML IV (22:26)
[2023-12-24] MEDS: KCL 40 MEQ PO (22:26)
[2023-12-25] VITALS (64 sets, daily range): BP systolic 81–129; BP diastolic 53–96
[2023-12-25] MEDS: NEO-SYNEPHRINE 250 IV (00:05)
[2023-12-25 04:39] LABS: Hematocrit 25.4 % (37.0-47.0); Hemoglobin 9.4 g/dL (12.0-16.0); Mean Corpuscular Hgb 31.2 pg (27.0-31.0); Mean Corpuscular Volume 84.4 fL (81.0-99.0); Mean Platelet Volume 9.1 fL (7.4-10.4); Platelet Count 285 10^3/uL (130-400); Red Blood Cell Count 3.01 10^6/uL (4.20-5.40); Red Cell Dist. Width 11.9 % (11.5-14.5); White Blood Cell Count 8.7 10^3/uL (4.8-10.8)
[2023-12-25 05:07] LABS: Blood Urea Nitrogen 14 mg/dl (7-17); Calcium 9.3 mg/dl (8.4-10.2); Carbon Dioxide 28 mmol/L (22-30); Chloride 85 mmol/L (98-107); Glucose 79 mg/dl (70-99); Potassium 4.1 mmol/L (3.5-5.1); Sodium 119 mmol/L (135-145); eGFR > 60.00
--- NOTE | 2023-12-25 05:19 | PTCARENOTE ---
received pt from nurse, assessments completed and charted, pt will awaken to voice, has no complaints of pain. pt continues to have EEG running, recieved call from neuro correspondence renew clerk, pt had some seizure activity, MD placed order for vimpat and 2mg of
ativan now, meds given over slow push.
patient continues with q4hr bmp, Na was 118, PRINTED CIRCUIT BOARDS SOLDER LEVELER stopped IVF, this morning labs showed Na of 119.
pt will follow some commands, takes pills in applesauce, had low K+ and it was replaced orally, pt swallows with no difficulty.
pt was started on Higinio for SBP of <85 with map of 56. Higinio at 20mcg. Map has been >65 for remainder of shift.
--- NOTE | 2023-12-25 07:00 | PTCARENOTE ---
0700 patient received this am in bed on continues EEG. patient AAO x3 . Denied pain. Speech slow, garble. patient opens eyes to voice, follwing commends. Neuro checks WNL. Involuntary lip movements noted B/L UE tremors. Mckenna draining clear yellow
urine. Higinio infusing via left AC at 20mcg. pt updates regarding plain of care call kennedy within reach
--- NOTE | 2023-12-25 07:04 | W.PN.INTV ---
Today's Communication / Plan
Recommendations
Asp precs
FR
A-sz regimen
Phenylephrine
Assessment
-
Assessment:
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 Of note, h/o paranoid schizophrenia on risperidone and sertraline, coincidentally started amantadine for medication induced parkinsonism, this medication was discontinued
about 3-4 d due to confusion and decreased activity. At ER, awake, no verbal response to questions, hypertensive, mild tachycardia, serum Na 106, Hgb 9.7, normal TSH. While at ER, witnessed sz while on EEG monitoring, given lorazepam IV, 3% saline
IV, keppra IV. Head CT with no acute findings. Seen by Neurology, rec to hold amantadine
Impression:
Severe hyponatremia
Suspected due to amantadine
Witnessed sz event at ER
UDS negative
Conditions SUPERVISOR TAN ROOM:
Paranoid schizophrenia, on risperidone and sertraline
HTN
Drug induced parkinsonism
R ankle surgery
Plan:
O2 protocol as needed
Remains resp rm stable on RA
Asp precs
Adm CXR without infiltrates
Appreciate Nephrology evaluation
Adm serum Na 106, currently at 120
MS has improved significantly since adm
Normal TSH and random cortisol
3% saline administration upon adm
Continue fluid restriction
Holding risperidone, sertraline, HCTZ
Amantadine already held 3-4 d SUPERVISOR TAN ROOM
Interim hypotension after lorazepam after adm but did not require pressor then
Interim hypotension overnight, started neosynephrine at low dose, wean down as tolerated
No indicator of septic process
Outpatient a-HTN meds held (amlodipine, hctz, losartan)
Continue levetiracetam for new onset sz in setting of profound hyponatremia
EEG showed ongoing rhythmic epileptiform activity until 7:40 pm 12-22 (ativan dose given at 7:33 pm)
EEG continued, reported intermittent nonconvulsive sz activity last evening, added lacosamide IV
Neurology following closely
Psychiatric evaluation 12-23, no additional recs, will follow
DVT prophylaxis
Critical care time: 35 min
Subjective Dataa
Subjective Data
Date of Service:
Date of Service: December 25, 2023
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
Subjective:
Events noted, EEG showed nonconvulsive seizure activity last night, started lacosamide
Review of Systems
General: Fever (n), Sweats (n), Chills (n) and Satisfactory Appetite
Cardiopulmonary: Dyspnea (n), Cough (n), Wheezing (n) and Chest Pain (n)
GI: Abdominal Pain (n), Nausea (n) and Vomiting (n)
Neuro: Weakness
Objective Data
Data Reviewed
Vital Signs / I&O / Oxygen:
Vital Signs
Temp Pulse Resp BP Pulse Ox
97.7 F 60 7 110/57 99
12/25/23 03:08 12/25/23 06:30 12/25/23 06:30 12/25/23 06:30 12/25/23 06:30
Intake and Output
12/24/23 12/25/23 12/26/23
06:59 06:59 06:59
Intake Total 120 / 120 342 / 342
Output Total 1510 / 1710 2520 / 2520
Balance -1390 / -1590 -2178 / -2178
SaO2 99
Nasal Cannula flow liters per 2
minute
Physical Exam
General: Respiratory Distress (n)
HEENT: Normocephalic and Moist Mucous Membranes
Cardiovascular: Regular Rhythm and Peripheral Edema (n)
Respiratory: Clear, Non-Labored Respirations and Stridor (n)
GI: Soft, Non Distended and Non Tender
Neurology: Awake, Oriented and Tremors
Skin: Warm
Labs/Micro/Reports
Lab Data
12/25/23 04:11
12/25/23 04:11
--- NOTE | 2023-12-25 08:05 | W.PN.NEPH.PH ---
Today's Communication / Plan
-
lytes
holding 3%
maintain pressor support to keep MAP over 65
Assessment/Plan
-
Impression:
Metabolic encephalopathy with profound hyponatremia (106)
History of hypertension
History of paranoid schizophrenia
Plan:
Patient critically ill with neurological dysfunction with associated TME in the setting of profound hyponatremia
-Patient continues with seizure activity and pressor requirement with hemodynamic instability overnight
-Patient with seizure on admission requiring 100 cc bolus of hypertonic saline, Ativan and Keppra
-Status post hypertonic saline infusion with repeat sodium at 116, no further seizure activity noted since last pm
-Currently holding further 3% at this time as sodium now at 119
-Patient mental status drastically improved
-Maintain fluid restriction
-recheck lytes at 3pm and at 8am ,january d/c q4h
-Urine osmolality of 152 consistent with only partial ADH response
-With hold hydrochlorothiazide and all antipsychotics including sertraline at this time
-Will closely monitor for over rapid correction as patient is an increased risk for central pontine myelinolysis
-Sodium goal correction rate will be 8-10 mEq over the next 24-hours
-Maintain pressor support for hypotension
-Total critical care time spent with patient 31-minutes
-
-
-
Date of Service: December 25, 2023
CC / HPI / ROS
-
Chief Complaint:
Hyponatremia
History of Present Illness:
Serum sodium rise to 119
Seizure activity overnight
Hemodynamically labile on pressor support
Review of Systems:
Nonoliguric via Mckenna
No chest pain or shortness of breath
Mentation improved
Labs
-
Labs:
WBC 8.7 10^3/uL (4.8-10.8) 12/25/23 04:11
RBC 3.01 10^6/uL (4.20-5.40) L 12/25/23 04:11
Hgb 9.4 g/dL (12.0-16.0) L 12/25/23 04:11
Hct 25.4 % (37.0-47.0) L 12/25/23 04:11
Plt Count 285 10^3/uL (130-400) 12/25/23 04:11
Sodium 119 mmol/L (135-145) L* 12/25/23 04:11
Potassium 4.1 mmol/L (3.5-5.1) 12/25/23 04:11
Chloride 85 mmol/L (98-107) L 12/25/23 04:11
Carbon Dioxide 28 mmol/L (22-30) 12/25/23 04:11
BUN 14 mg/dl (7-17) 12/25/23 04:11
Creatinine 0.7 mg/dL (0.6-1.0) 12/25/23 04:11
eGFR > 60.00 12/25/23 04:11
Glucose 79 mg/dl (70-99) 12/25/23 04:11
Calcium 9.3 mg/dl (8.4-10.2) 12/25/23 04:11
Albumin 4.9 g/dl (3.5-5.0) 12/23/23 15:19
Physical Exam
-
Vital Signs:
Vital Signs
Temp Pulse Resp BP Pulse Ox
97.7 F 60 7 110/57 99
12/25/23 03:08 12/25/23 06:30 12/25/23 06:30 12/25/23 06:30 12/25/23 06:30
Cardiovascular:: Regular rate and rhythm
Respiratory:: Bilateral: CTA
Lung Excursion:: Normal
Abdomen:: Nontender and Soft
Bowel Sounds:: Normal
Extremity Edema:: None: Bilateral:
Mckenna Catheter: Yes
[2023-12-25 09:18] LABS: Blood Urea Nitrogen 13 mg/dl (7-17); Calcium 9.4 mg/dl (8.4-10.2); Carbon Dioxide 32 mmol/L (22-30); Chloride 85 mmol/L (98-107); Glucose 90 mg/dl (70-99); Potassium 4.2 mmol/L (3.5-5.1); Sodium 120 mmol/L (135-145); eGFR > 60.00
[2023-12-25] MEDS: KEPPRA 1500 MG IV ×2 (09:25→20:18)
--- NOTE | 2023-12-25 09:25 | W.PN.HOSP.TC ---
Today's Communication/Plan
-
see bold
Assessment / Plan
Assessment / Plan
Gen: NAD, AAOx2-3, NCAT
Eyes: EOMI, PERRLA, no scleral icterus.
Neck: supple.
CV: RRR, +S1/S2, no m/r/g.
Resp: CTAB, no rales, wheezes, or rhonchi.
Abd: +BS, soft, NT, ND
Skin: No rashes.
Neuro: CN 2-12 intact, non-focal, diffuse resting tremor.
Psych: remains mildly flat affect.
EEG: abnormal due to the presence of both nonconvulsive and convulsive seizure activity
Hyponatremia:
-with seizure activity due to severe hyponatremia, Keppra started, then Vimpat, neuro following, cEEG continues (seizure O/N). As per discussion with Dr. Hart, pt had EEG findings that qualified for status epilepticus.
-holding hydrochlorothiazide/SSRI/antipsychotics
-Na 120 s/p 3% NS
-cont to trend Na (1500 today and then 0800 tomorrow) with goal of no more than 8-12mmol/L change room attendant 24 hours
-pressor support with Higinio
-yesterday patient had a few hours of D5 water
-nephrology following. Case discussed with Dr. Rowe. No interventions for patient's sodium today. Hopefully will improve on its own.
Paranoid Schizophrenia:
-Psych following
-Holding Risperdal and Zoloft
Drug-Induced Parkinsonism:
-Holding amantadine
Essential Hypertension
-HCTZ stopped due hyponatremia (will never restart)
-Holding amlodipine and losartan
FULL/Lovenox
Total critical care time spent = 34 min
Anticipated Discharge: > 48 hours
Subjective/Interval History
-
Date of Service: December 25, 2023
Objective Data
-
Labs:
Laboratory Results
12/24/23 12/25/23 12/25/23
21:02 04:11 08:55
WBC 8.7
Hgb 9.4 L
Hct 25.4 L
Plt Count 285
Sodium 118 L* 119 L* 120 L
Potassium 3.4 L 4.1 4.2
Chloride 83 L 85 L 85 L
Carbon Dioxide 28 28 32 H
BUN 13 14 13
Creatinine 0.6 0.7 0.6
Glucose 128 H 79 90
Calcium 9.3 9.3 9.4
12/25/23
15:00
WBC
Hgb
Hct
Plt Count
Sodium Pending
Potassium Pending
Chloride Pending
Carbon Dioxide Pending
BUN
Creatinine
Glucose
Calcium
Vital Signs:
Vital Signs
Temp Pulse Resp BP Pulse Ox
98.0 F 60 7 110/57 99
12/25/23 07:24 12/25/23 06:30 12/25/23 06:30 12/25/23 06:30 12/25/23 06:30
I&O
12/24/23 12/25/23 12/26/23
06:59 06:59 06:59
Intake Total 120 / 120 342 / 348
Output Total 1510 / 1710 2520 / 2570 100 / 100
Balance -1390 / -1590 -2178 / -2222 -88 / -88
--- NOTE | 2023-12-25 10:06 | W.PN.NEURO.1 ---
Today's Communication / Plan
-
continue Vimpat, Keppra
MRI brain
Neuro Assessment/Plan
Assessment
Impressions
1. Encephalopathy is highly likely to be due to profound symptomatic hyponatremia. She has had a convulsive seizure and nonconvulsive seizure activity seen on EEG, provoked by her hyponatremia. She had some seizures yesterday evening and her EEG
then improved.
2. Patient has history of paranoid schizophrenia maintained on fpc antipsychotics
3. 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
4. Recent starting of amantadine for above symptoms of parkinsonism appears to be the only recent medication change. Is on HCTZ. Amantadine has potential for SIADH and hyponatremia, additionally is on SSRI sertraline but has been on this for
years.
CT head noncontrast unremarkable no acute changes of stroke or hemorrhage
CTA head and neck no intracranial occlusion or carotid stenosis or occlusion seen
IV Tenecteplase/IAT candidacy: Not a candidate for tenecteplase due to not having diagnosis of acute ischemic stroke as the patient has severe hyponatremia as the most likely cause of her symptoms, no intracranial occlusion on CTA of the head and
neck not a candidate for IAT
Plan
Recommendations:
1. continuous EEG; continue Keppra 1500mg q12 while still at risk for seizures; added on Vimpat 150mg q12 starting last night; rescue Ativan ordered for any further seizures
2. sodium improving; nephro managing; avoid rapid correction
3. Hold any further doses of amantadine
4. Neurologic checks
5. will need an MRI brain when able
Reviewed with patient's at bedside, Dr. Kyle, nursing and nephro.
Critical care time 30 mins
Subjective/Objective
Subjective Data
Date of Service: December 25, 2023
patient had electrographic seizure overnight, Vimpat added
Objective Data
Vital Signs
Temp Pulse Resp BP Pulse Ox
98.0 F 60 7 110/57 99
12/25/23 07:24 12/25/23 06:30 12/25/23 06:30 12/25/23 06:30 12/25/23 06:30
Lab Results
12/25/23 04:11
PT 13.1 Sec (11.4-14.6) 12/23/23 15:19
INR 1.01 12/23/23 15:19
APTT 28.5 Sec (23.4-35.0) 12/23/23 15:19
Sodium 120 mmol/L (135-145) L 12/25/23 08:55
Potassium 4.2 mmol/L (3.5-5.1) 12/25/23 08:55
BUN 13 mg/dl (7-17) 12/25/23 08:55
Glucose 90 mg/dl (70-99) 12/25/23 08:55
Calcium 9.4 mg/dl (8.4-10.2) 12/25/23 08:55
LDL Cholesterol, Calc 59 mg/dl 12/23/23 15:19
Vitamin B12 979 pg/ml (239-931) H 12/23/23 15:19
Ur Buprenorphine Negative (Negative) 12/23/23 17:48
Patient Allergies
Pork/Porcine Containing Products Allergy (Verified 12/23/23 22:09)
Diarrhea (ham,aguirre,sausage,pork)
Physical Exam
Extended Neurological Exam
Attention Span & Concentration: Awake, Alert, Interactive and Other (oriented x 3, unable to state name of president but states she may not know this at baseline)
Tremor: Other (bue tremor, head/lip tremor--has this at baseline but appears slightly worsened)
Speech: Negative Expressive Aphasia
Cranial Nerves III, IV, : Extraocular Movement: Extraocular Movement Full in all Directions
Cranial Nerve VII: Facial Symmetry: Normal Facial Symmetry
Muscle Strength, Overall: Full Throughout
Deep Tendon Reflexes: Unremarkable Throughout
[2023-12-25] MEDS: VIMPAT 150 MG IV ×2 (10:35→22:03)
[2023-12-25] MEDS: ATIVAN 1 MG IV ×2 (10:48→11:03)
[2023-12-25] MEDS: NSS (PRESERVATIVE FREE) 0.5 ML IV ×2 (10:49→11:03)
--- NOTE | 2023-12-25 11:05 | PTCARENOTE ---
Addendum entered by Tonja Hillman RN 12/25/23 19:11:
Per Dr Rowe No IV fluids at this time due to low sodium
Original Note:
Involuntary lip movements and UE B/L tremors continue to be noted. Ativan 1mg prn order and Ativan 1mcg extra dose total of 2mg IV adm per DR Hart adm. after ativan adm pt drowsy no tremors noted NPO per sT . sodium at [address]
Ameliato aware. Next BMP schedule for am
--- NOTE | 2023-12-25 13:29 | PTOTSP ---
SPEECH THERAPY SWALLOW EVALUATION:
Patient exhibits clinical signs of oropharyngeal dysphagia, likely acute related to encephalopathy secondary to hyponatremia and seizure activity. Patient is at high risk for aspiration and related complications given confusion and lethargy.
Recommend temporary NPO except for necessary medications crushed in puree. Speech therapy to follow, re-assess patient in 24 hours, determine readiness for additional p.o. trials/textures, provide continued diagnostic therapy as appropriate.
RECOMMEND:
1) Temporary NPO
2) Necessary medications crushed in puree
3) Non-oral hydration/nutrition
4)Speech therapy to follow, re-assess patient in 24 hours, determine readiness for additional p.o. trials/textures, provide continued diagnostic therapy as appropriate
--- NOTE | 2023-12-25 13:30 | W.PN.UPDATE ---
Update Note
Progress Note Update
Patient is drowsy but able to communicate appropriately. She reports auditory hallucinations and some paranoid thoughts but fortunately is not acutely psychotic and not responding to internal stimuli.
She denies depression, hopelessness suicidal thoughts.
Sodium is low still at 120; EEG is being monitored.
For now would continue to hold her psychotropic meds but likely she will need an antipsychotic in the future.
will continue F/U.
[2023-12-25 15:06] LABS: Carbon Dioxide 30 mmol/L (22-30); Chloride 87 mmol/L (98-107); Potassium 4.3 mmol/L (3.5-5.1); Sodium 120 mmol/L (135-145)
[2023-12-25] MEDS: LOVENOX 40 MG SC (18:20)
--- NOTE | 2023-12-25 20:00 | PTCARENOTE ---
Pt received sleeping. Arouses easily to name. Continuous EEG monitoring ongoing. No obvious seizure activity noted. Assessment as charted.
--- NOTE | 2023-12-25 20:59 | EEGC.RPT ---
Continuous EEG Report
Recording
Start Date of Data Reviewed: 12/24/23
Start Time of Data Reviewed: 17:21
End Date of Data Reviewed: 12/25/23
End Time of Data Reviewed: 17:21
Type of EEG: Continuous
Done with Video Recording: Yes
Study Sequence: Continuation of ongoing Study
Report
METHODS
A 21 channel digitized electroencephalogram was performed at [facility]. The 10/20 international system of electrode placement was used. In addition to EEG, the patient was monitored for EKG. The duration of the recording was 24 hours.
BACKGROUND
During the awake state, with the eyes closed, the background consisted of a normal amplitude, 9 Hertz posterior reactive rhythm that attenuated appropriately with eye opening. The study was severely limited at times by rhythmic eye blinking, tremor,
movement and muscle artifact.
ABNORMAL EEG ACTIVITY
This EEG is abnormal due to the presence of occasional to rare right parietal rhythmic theta range slowing that evolved to rhythmic delta range slowing consistent with electrographic seizure, lasting up to 60 seconds in duration.
INTERPRETATION AND CLINICAL CORRELATION
This EEG is abnormal due to the presence of nonconvulsive seizure activity. The study was frequently severely limited by rhythmic eye blinking, tremor, movement and muscle artifact.
[2023-12-26] VITALS (28 sets, daily range): BP systolic 103–146; BP diastolic 59–108
[2023-12-26 05:21] LABS: Hematocrit 24.8 % (37.0-47.0); Hemoglobin 9.1 g/dL (12.0-16.0); Mean Corp Hgb Conc. 36.7 g/dL (33.0-37.0); Mean Corpuscular Hgb 31.2 pg (27.0-31.0); Mean Corpuscular Volume 84.9 fL (81.0-99.0); Mean Platelet Volume 8.4 fL (7.4-10.4); Platelet Count 278 10^3/uL (130-400); Red Blood Cell Count 2.92 10^6/uL (4.20-5.40); Red Cell Dist. Width 11.7 % (11.5-14.5); White Blood Cell Count 6.2 10^3/uL (4.8-10.8)
[2023-12-26 05:59] LABS: Blood Urea Nitrogen 14 mg/dl (7-17); Calcium 9.4 mg/dl (8.4-10.2); Carbon Dioxide 30 mmol/L (22-30); Chloride 89 mmol/L (98-107); Glucose 88 mg/dl (70-99); Potassium 4.3 mmol/L (3.5-5.1); Sodium 124 mmol/L (135-145); eGFR > 60.00
--- NOTE | 2023-12-26 06:30 | W.PN.NEURO.1 ---
Today's Communication / Plan
-
-Can come off continuous EEG
-Neurologic checks and follow mental status
-Follow sodiums
-Stop levetiracetam
-Continue lacosamide 150 mg every 12 hours
-Check MRI of the brain with and without contrast assess for structural causes of hyponatremia
-Holding psychotropic medications understanding she will likely need to be restarted on antipsychotics
Will follow
Neuro Assessment/Plan
Assessment
CT head noncontrast unremarkable no acute changes of stroke or hemorrhage
CTA head and neck no intracranial occlusion or carotid stenosis or occlusion seen
Impressions
1. Encephalopathy is highly likely to be due to profound symptomatic hyponatremia. She has had a convulsive seizure and nonconvulsive seizure activity seen on EEG, provoked by her hyponatremia.
2. 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
3. 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
Rhythmic blinking may be a dyskinesia from antipsychotic use or automatism from schizophrenia, shows no epileptiform changes when caught on cEEG, is not a seizure
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 SSRI, HCTZ, Amantadine
Mental status improved compared to admission
Subjective/Objective
Subjective Data
Date of Service: December 26, 2023
No acute events overnight, no seizure seen on cEEG monitoring, patient talking and conversational this morning, denies pain
Objective Data
Vital Signs
Temp Pulse Resp BP Pulse Ox
98.2 F 65 13 118/74 98
12/26/23 05:43 12/26/23 06:00 12/26/23 06:00 12/26/23 06:00 12/26/23 06:00
Lab Results
12/26/23 04:44
12/26/23 04:44
PT 13.1 Sec (11.4-14.6) 12/23/23 15:19
INR 1.01 12/23/23 15:19
APTT 28.5 Sec (23.4-35.0) 12/23/23 15:19
Sodium 124 mmol/L (135-145) L 12/26/23 04:44
Potassium 4.3 mmol/L (3.5-5.1) 12/26/23 04:44
BUN 14 mg/dl (7-17) 12/26/23 04:44
Glucose 88 mg/dl (70-99) 12/26/23 04:44
Calcium 9.4 mg/dl (8.4-10.2) 12/26/23 04:44
LDL Cholesterol, Calc 59 mg/dl 12/23/23 15:19
Vitamin B12 979 pg/ml (239-931) H 12/23/23 15:19
Ur Buprenorphine Negative (Negative) 12/23/23 17:48
Patient Allergies
Pork/Porcine Containing Products Allergy (Verified 12/23/23 22:09)
Diarrhea (ham,aguirre,sausage,pork)
Review of Systems
-
History Source: Patient
All other systems: Reviewed and negative
Constitutional: No Symptoms
EENT: No Symptoms Reported
Respiratory: No Symptoms
Cardiac: No Symptoms
Abdomen/GI: No Symptoms
Genitourinary: No Symptoms
Musculoskeletal: No Symptoms
Skin: No Symptoms
Neuro: See existing Neuro Note
Endocrine: No Symptoms
Hematologic / Lymphatic: No Symptoms
Allergy / Immunology: No Symptoms
Physical Exam
-
General: Comfortable
Eyes: No Ptosis
HEENT: Normocephalic
Neck: No Bruits Bilaterally
Respiratory: No Dyspnea; Negative Wheezes or Accessory Resp Muscle Use
Cardiac: No Murmur
GI: Soft and Non-tender
Skin: Warm and Dry; Negative Rash
Extremities: No Edema
Psych: Negative Agitated
Extended Neurological Exam
Attention Span & Concentration: Other ( Awake oriented to person and that she is in the hospital can name her and obeys simple commands, difficulty with complex commands and shows some inattention)
Memory: Reduced
Tremor: Other (Resting tremor of hands bilaterally)
Speech: Negative Expressive Aphasia or Receptive Aphasia
Cranial Nerve II: Left Eye: Pupillary Reactivity Unremarkable and Pupillary Size Unremarkable
Cranial Nerve II: Right Eye: Pupillary Reactivity Unremarkable and Pupillary Size Unremarkable
Cranial Nerves III, IV, : Extraocular Movement: Extraocular Movement Full in all Directions
Cranial Nerve VII: Facial Symmetry: Normal Facial Symmetry
Muscle Strength, Overall: Full Throughout
Muscle Bulk & Tone: Other (Mild cogwheeling in the wrists bilaterally)
Pronator Drift: No Drift in Upper Extremities
Touch Sensation: Unremarkable
Data Reviewed
-
CT Head: Report Reviewed and Image Reviewed
MRI Head: Ordered and Pending
EEG: Report Reviewed
Labs: Report Reviewed
--- NOTE | 2023-12-26 08:13 | W.PN.INTV ---
Today's Communication / Plan
Recommendations
Asp precs
Trend serum Na
AEDs as per neurology
MAP>65
Serum sodium now >120 patient without seizure activity. Also off vasopressors since yesterday. Stable for downgrade to telemetry. Critical care/pulmonary service will now sign off. Please reconsult if there are any additional questions/concerns,
or if patient's respiratory status deteriorates.
Assessment
-
Assessment:
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 Of note, h/o paranoid schizophrenia on risperidone and sertraline, coincidentally started amantadine for medication induced parkinsonism, this medication was discontinued
about 3-4 d due to confusion and decreased activity. At ER, awake, no verbal response to questions, hypertensive, mild tachycardia, serum Na 106, Hgb 9.7, normal TSH. While at ER, witnessed sz while on EEG monitoring, given lorazepam IV, 3% saline
IV, keppra IV. Head CT with no acute findings. Seen by Neurology, rec to hold amantadine
Impression:
Severe hyponatremia
Suspected due to amantadine
Witnessed sz event at ER
UDS negative
Shock requiring phenylephrine - now off vasopressors since 12/25/2023
Conditions CAMP GUARD:
Paranoid schizophrenia, on risperidone and sertraline
HTN
Drug induced parkinsonism
R ankle surgery
Plan:
O2 protocol as needed
Remains resp rm stable on RA
Asp precs
Adm CXR without infiltrates
Appreciate Nephrology evaluation
Adm serum Na 106, currently at 124
MS has improved significantly since adm
Normal TSH and random cortisol
3% saline administration upon adm
Holding risperidone, sertraline, HCTZ
Amantadine already held 3-4 d CAMP GUARD
Interim hypotension after lorazepam after adm but did not require pressor then
Interim hypotension on AISHWARYA od 12/24 --> started neosynephrine at low dose --> this has now been weaned off since yesterday
No indicator of septic process
Outpatient a-HTN meds held (amlodipine, hctz, losartan)
Antiepileptics as per neurology
EEG showed ongoing rhythmic epileptiform activity until 7:40 pm 12-22 (ativan dose given at 7:33 pm)
EEG continued, reported intermittent nonconvulsive sz activity evening of 12/23, added lacosamide IV
Neurology following closely
Psychiatric evaluation 12-23, no additional recs, will follow
DVT prophylaxis - LMWH
Serum sodium now >120 patient without seizure activity. Stable for downgrade to telemetry. Critical care/pulmonary service will now sign off. Thank you for allowing us to be involved in the care of this patient. Please reconsult if there are any
additional questions/concerns, or if patient's respiratory status deteriorates.
Total time spent today was 56 minutes for this encounter. Time includes reviewing laboratory test/imaging results, reviewing pertinent medical records, obtaining and reviewing medical history, performing an appropriate exam, ordering medications,
tests and procedures. Time also includes documentation of this encounter, coordinating patient care and communicating with other healthcare professionals. Total time does not include separately billed tests performed on this date of service.
Subjective Dataa
Subjective Data
Date of Service:
Date of Service: December 26, 2023
Chief Complaint: Box Spinner Follow Up
Subjective:
Pt seen this AM. No seizure episodes overnight. HR 99, BP 123/67, SpO2 98% on room air. Her speech is still slow and slurred. According to nursing, she was worse with her speech yesterday. Unclear what her baseline is in terms of speech.
Patient is answering my questions appropriately and moving all 4 extremities. Patient denies headache, chest pain, shortness of breath, fevers or chills.
Review of Systems
General: Other (Negative unless mentioned above)
Objective Data
Data Reviewed
Vital Signs / I&O / Oxygen:
Vital Signs
Temp Pulse Resp BP Pulse Ox
99.3 F 65 13 118/74 98
12/26/23 07:20 12/26/23 06:00 12/26/23 06:00 12/26/23 06:00 12/26/23 06:00
Intake and Output
12/25/23 12/26/23 12/27/23
06:59 06:59 06:59
Intake Total 342 / 348 124 / 124
Output Total 2520 / 2570 755 / 755
Balance -2178 / -2222 -631 / -631
SaO2 98
Nasal Cannula flow liters per 2
minute
Physical Exam
General: Respiratory Distress (n), Comfortable and Chills (negative)
HEENT: Normocephalic, Anicteric and Moist Mucous Membranes
Cardiovascular: S1-S2 and Peripheral Edema (n)
Respiratory: Clear, Wheeze (negative), Non-Labored Respirations, Stridor (n) and Other (Reduced breath sounds bilaterally)
GI: Soft, Non Distended and Non Tender
Neurology: Awake, Alert, Oriented, Tremors (negative) and Other (Aircraft Body Repairer strength bilaterally is 3/5; plantar-flexion bilaterally is 3/5)
Skin: Warm and Dry
Labs/Micro/Reports
Lab Data
12/26/23 04:44
--- NOTE | 2023-12-26 08:48 | W.PN.NEPH.PH ---
Today's Communication / Plan
-
follow BMP
Assessment/Plan
-
Impression:
Metabolic encephalopathy with profound hyponatremia (106)
History of hypertension
History of paranoid schizophrenia
Plan:
Patient critically ill with neurological dysfunction with associated TME in the setting of profound hyponatremia
to come off EEG continuous
seizure meds adjusted by neurology
for MRI brain
serial BMP today
repeat urine studies today, then can remove lauren if dictated by protocol
watch BP
critical care time 31 minutes
-
-
Date of Service: December 26, 2023
CC / HPI / ROS
-
Chief Complaint:
Hyponatremia
History of Present Illness:
Serum sodium now up to 124
No seizure activity overnight
off pressors overnight, BP stable
remains critically ill in ICU
was drowsy earlier
Review of Systems:
Nonoliguric
No chest pain or shortness of breath
sluggish today
slightly hungry/thirsty
Labs
-
Labs:
WBC 6.2 10^3/uL (4.8-10.8) 12/26/23 04:44
RBC 2.92 10^6/uL (4.20-5.40) L 12/26/23 04:44
Hgb 9.1 g/dL (12.0-16.0) L 12/26/23 04:44
Hct 24.8 % (37.0-47.0) L 12/26/23 04:44
Plt Count 278 10^3/uL (130-400) 12/26/23 04:44
Sodium 124 mmol/L (135-145) L 12/26/23 04:44
Potassium 4.3 mmol/L (3.5-5.1) 12/26/23 04:44
Chloride 89 mmol/L (98-107) L 12/26/23 04:44
Carbon Dioxide 30 mmol/L (22-30) 12/26/23 04:44
BUN 14 mg/dl (7-17) 12/26/23 04:44
Creatinine 0.7 mg/dL (0.6-1.0) 12/26/23 04:44
eGFR > 60.00 12/26/23 04:44
Glucose 88 mg/dl (70-99) 12/26/23 04:44
Calcium 9.4 mg/dl (8.4-10.2) 12/26/23 04:44
Albumin 4.9 g/dl (3.5-5.0) 12/23/23 15:19
Physical Exam
-
Vital Signs:
Vital Signs
Temp Pulse Resp BP Pulse Ox
99.3 F 65 13 118/74 98
12/26/23 07:20 12/26/23 06:00 12/26/23 06:00 12/26/23 06:00 12/26/23 06:00
Cardiovascular:: Regular rate and rhythm
Respiratory:: Bilateral: CTA
Lung Excursion:: Normal
Abdomen:: Nontender and Soft
Bowel Sounds:: Normal
Extremity Edema:: None: Bilateral:
--- NOTE | 2023-12-26 09:06 | W.PN.HOSP.TC ---
Today's Communication/Plan
-
Monitor sodium. Might restart risperidone. Fluid restriction. PT OT eval
Assessment / Plan
Assessment / Plan
Gen: NAD, AAOx2-3, NCAT
Eyes: EOMI, PERRLA, no scleral icterus.
Neck: supple.
CV: RRR, +S1/S2, no m/r/g.
Resp: CTAB, no rales, wheezes, or rhonchi.
Abd: +BS, soft, NT, ND
Skin: No rashes.
Neuro: CN 2-12 intact, non-focal, diffuse resting tremor.
Psych: remains mildly flat affect but no agitations or hyperactivity.
EEG: abnormal due to the presence of both nonconvulsive and convulsive seizure activity
A/P:
Hyponatremia:
-Sodium 123 today
-Start diet today with fluid restriction
-Follow-up nephrology further recommendations
-Continue to monitor sodium
-PT OT eval
-Can possibly transfer out of ICU today
Prior to today:
-with seizure activity due to severe hyponatremia, Keppra started, then Vimpat, neuro following, cEEG continues (seizure O/N). As per discussion with Dr. Hart, pt had EEG findings that qualified for status epilepticus.
-holding hydrochlorothiazide/SSRI/antipsychotics
-Na 120 s/p 3% NS
-cont to trend Na (1500 today and then 0800 tomorrow) with goal of no more than 8-12mmol/L policy change clerk 24 hours
-pressor support with Higinio
-yesterday patient had a few hours of D5 water
-nephrology following. Case discussed with Dr. Rowe. No interventions for patient's sodium today. Hopefully will improve on its own.
Seizures:
-Continue Vimpat and stop Keppra
-Status post continuous EEG
-Might do MRI of the brain by neurology if they think it is appropriate
Paranoid Schizophrenia:
-I did not see any psych note initially so I placed a new consult for psychiatry today on 12/25. I was able to see an old note from psych from before but anyway she will need f/u by psych prior to d/c and now that she is getting better.
-Holding Risperdal and Zoloft
-Psychiatry might restart risperidone at lower doses.
Drug-Induced Parkinsonism:
-Holding amantadine
Essential Hypertension
-HCTZ stopped due hyponatremia (will never restart)
-Holding amlodipine and losartan
FULL/Lovenox
Total time spent on today's encounter was 52 minutes which included time spent in counseling the patient/family regarding diagnosis and treatment plan as listed above, goals of care, and symptom management. Case was discussed with nursing staff,
specialists, and care coordinators/case management. All labs and imaging personally reviewed by me. Remainder the time spent in detailed review of previous records, lab data, imaging, and other medical provider documentation.
Anticipated Discharge: > 48 hours
Subjective/Interval History
-
Date of Service: December 26, 2023
Patient alert, able to converse with me today, no chest pain or shortness of breath. No further seizures. No headaches.
Objective Data
-
Labs:
Laboratory Results
12/26/23 12/26/23
04:44 13:00
WBC 6.2
Hgb 9.1 L
Hct 24.8 L
Plt Count 278
Sodium 124 L Pending
Potassium 4.3 Pending
Chloride 89 L Pending
Carbon Dioxide 30 Pending
BUN 14 Pending
Creatinine 0.7 Pending
Glucose 88 Pending
Calcium 9.4 Pending
Vital Signs:
Vital Signs
Temp Pulse Resp BP Pulse Ox
99.3 F 65 13 118/74 98
12/26/23 07:20 12/26/23 06:00 12/26/23 06:00 12/26/23 06:00 12/26/23 06:00
I&O
12/25/23 12/26/23 12/27/23
06:59 06:59 06:59
Intake Total 342 / 348 124 / 124
Output Total 2520 / 2570 755 / 755
Balance -2178 / -2222 -631 / -631
Review of Systems
-
All other systems: Reviewed and negative
--- NOTE | 2023-12-26 09:08 | EEGC.RPT ---
Continuous EEG Report
Recording
Start Date of Data Reviewed: 12/25/23
Start Time of Data Reviewed: 17:21
End Date of Data Reviewed: 12/26/23
End Time of Data Reviewed: 09:00
Type of EEG: Continuous
Done with Video Recording: Yes
Study Sequence: Continuation of ongoing Study
Report
A 21 channel digitized electroencephalogram was performed at [facility]. The 10/20 international system of electrode placement was used. In addition to EEG, the patient was monitored for EKG. The duration of the recording was 17 hours 38
minutes.
BACKGROUND
During the awake state, with the eyes closed, the background consisted of a normal amplitude, 9 Hertz posterior reactive rhythm that attenuated appropriately with eye opening. The study was severely limited at times by rhythmic eye blinking, tremor,
movement and muscle artifact.
INTERPRETATION AND CLINICAL CORRELATION
This EEG is normal. The study was frequently severely limited by rhythmic eye blinking, tremor, movement and muscle artifact, during which time underlying nonconvulsive seizure activity cannot be definitively ruled out.
--- NOTE | 2023-12-26 10:05 | PTOTSP ---
Dysphagia Therapy
Patient presents with WFL-mild oral stage of swallowing and can initiate a regular thin liquid diet.
Recommend:
1. Regular, Thin Liquids
2. Medications as best tolerated
3. PO only when awake/alert
4. Will follow up briefly to ensure diet tolerance via chart review, discussion with patient/medical staff, and therapeutic assessment of swallowing as able/appropriate.
[2023-12-26] MEDS: VIMPAT 150 MG IV ×2 (10:12→21:24)
[2023-12-26 11:13] LABS: Osmolality Urine 508 mOsm/kg (300-900)
[2023-12-26 11:26] LABS: Urine Sodium 25 mmol/L (30-90)
--- NOTE | 2023-12-26 11:53 | PTCARENOTE ---
Returned from MRI/head, results pending. patient has very mild lips tremors no b/l UE or LE tremors noted. very slow and unclear speech. AAO x3. BP via RT upper arm 145/108 MAP 118; SR 79; RR 13 POx 98%RA. Denies pain. Indwelling Mckenna removed at
11:45; pt Due to void around 1800. Purwick catheter placed to monitor Urinal output . Urine osmolirity and creatine send earlier results pending HOB elevated call kennedy within reach
[2023-12-26] MEDS: SENOKOT-S 2 TABLET PO (12:04)
[2023-12-26 15:03] LABS: Blood Urea Nitrogen 14 mg/dl (7-17); Calcium 9.4 mg/dl (8.4-10.2); Carbon Dioxide 31 mmol/L (22-30); Chloride 87 mmol/L (98-107); Glucose 158 mg/dl (70-99); Potassium 4.3 mmol/L (3.5-5.1); Sodium 123 mmol/L (135-145); eGFR > 60.00
--- NOTE | 2023-12-26 15:47 | CM ---
CM met with pt bedside
Pt notes she resides with her spouse, two adult children and aging mother in a split level home
5 RITA and 6 steps to bed/bath
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
Pt notes independence with her ADLs and drives+
She denies use of DMEs and notes she is on disability
PCP- Genesis Harris
Rx- [facility]
PT/OT orders requested
Discharge Disposition- home, follow for higher needs
[2023-12-26] MEDS: LOVENOX 40 MG SC (18:20)
--- NOTE | 2023-12-26 18:24 | PTCARENOTE ---
AAO x3. Neuro check WNL. B/L hands tremors noted, mild lips tremors noted. Speech continue to be slow, unclear.
[2023-12-27] VITALS (15 sets, daily range): BP systolic 110–150; BP diastolic 38–102; PULSE 118–120; O2SAT 96–98
--- NOTE | 2023-12-27 02:10 | PTCARENOTE ---
Pt received from previous shift in bed. AAOx3, slow clear speech. Occasional upper and lower extremity tremors noted. Telemetry - SR. Full physical assessment documented (refer to worklist). Assisted w/HS care. Turned and positioned for
comfort. #20 LAC/RAC INTs patent. Offers no complaints. Call kennedy within reach, bed alarm active for safety. Plan of care ongoing.
[2023-12-27 05:05] LABS: Hematocrit 25.4 % (37.0-47.0); Hemoglobin 9.3 g/dL (12.0-16.0); Mean Corp Hgb Conc. 36.6 g/dL (33.0-37.0); Mean Corpuscular Volume 84.7 fL (81.0-99.0); Mean Platelet Volume 8.9 fL (7.4-10.4); Platelet Count 262 10^3/uL (130-400); Red Cell Dist. Width 11.7 % (11.5-14.5); White Blood Cell Count 7.1 10^3/uL (4.8-10.8)
[2023-12-27 05:32] LABS: Blood Urea Nitrogen 14 mg/dl (7-17); Calcium 9.9 mg/dl (8.4-10.2); Carbon Dioxide 30 mmol/L (22-30); Chloride 89 mmol/L (98-107); Glucose 97 mg/dl (70-99); Magnesium 1.8 mg/dl (1.6-2.3); Phosphorus 3.6 mg/dl (2.5-4.5); Potassium 4.2 mmol/L (3.5-5.1); Sodium 124 mmol/L (135-145); eGFR > 60.00
[2023-12-27] MEDS: THERAGRAN 1 TABLET PO (08:14)
[2023-12-27] MEDS: VIMPAT 100 MG IV ×2 (08:14→10:31)
--- NOTE | 2023-12-27 08:54 | W.PN.HOSP.TC ---
Today's Communication/Plan
-
Salt tablets. Vimpat. Risperdal
Assessment / Plan
Assessment / Plan
Gen: NAD, AAOx2-3, NCAT
Eyes: EOMI, PERRLA, no scleral icterus.
Neck: supple.
CV: RRR, +S1/S2, no m/r/g.
Resp: CTAB, no rales, wheezes, or rhonchi.
Abd: +BS, soft, NT, ND
Skin: No rashes.
Neuro: CN 2-12 intact, non-focal, diffuse intermittent resting tremor.
Psych: slow hesitant speech, holds conversations, no agitations or hyperactivity. No delusions or hallucinations.
EEG: abnormal due to the presence of both nonconvulsive and convulsive seizure activity
A/P:
Hyponatremia:
Sodium 124 today
Continue fluid restriction
Started on salt tablets 1 g twice a day
Continue Lasix 20 mg daily
Monitor sodium
PT OT
Hypotension:
Improved
Off pressors
Seizures:
Only on Vimpat 100 mg twice a day and consider stop upon discharge
Brain MRI no acute abnormalities but some cervical disc pathology.
Paranoid Schizophrenia:
Psych input appreciated
Restart Risperdal
Hold off on sertraline
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
-Holding amantadine
-Might be able to use Cogentin as needed
Essential Hypertension
-HCTZ stopped due hyponatremia (will never restart)
-Holding amlodipine and losartan
FULL/Lovenox
Anticipated Discharge: 24 - 48 hours
Subjective/Interval History
-
Date of Service: December 27, 2023
Patient remains alert. Conversant although slow hesitant speech. No seizures event. Afebrile
Objective Data
-
Labs:
Laboratory Results
12/27/23
04:50
WBC 7.1
Hgb 9.3 L
Hct 25.4 L
Plt Count 262
Sodium 124 L
Potassium 4.2
Chloride 89 L
Carbon Dioxide 30
BUN 14
Creatinine 0.6
Glucose 97
Calcium 9.9
Vital Signs:
Vital Signs
Temp Pulse Resp BP Pulse Ox
98.4 F 76 12 125/59 96
12/27/23 08:12 12/27/23 04:00 12/27/23 04:00 12/27/23 04:00 12/27/23 02:00
I&O
12/26/23 12/27/23 12/28/23
06:59 06:59 06:59
Intake Total 124 / 124 700 / 700
Output Total 755 / 755 650 / 650
Balance -631 / -631 50 / 50
--- NOTE | 2023-12-27 09:03 | W.PN.NEPH.PH ---
Today's Communication / Plan
-
salt
Assessment/Plan
-
Impression:
Metabolic encephalopathy with profound hyponatremia (106)
History of hypertension
History of paranoid schizophrenia
Plan:
-salt 1 gm BID
-lasix 20mg daily
-follow BMP
-
-
Date of Service: December 27, 2023
CC / HPI / ROS
-
Chief Complaint:
Hyponatremia
History of Present Illness:
Serum sodium now up to 124 and stable
No seizure activity overnight
BP stable
Review of Systems:
Nonoliguric
No chest pain or shortness of breath
c/o blurry vision, shakes
Labs
-
Labs:
WBC 7.1 10^3/uL (4.8-10.8) 12/27/23 04:50
RBC 3.00 10^6/uL (4.20-5.40) L 12/27/23 04:50
Hgb 9.3 g/dL (12.0-16.0) L 12/27/23 04:50
Hct 25.4 % (37.0-47.0) L 12/27/23 04:50
Plt Count 262 10^3/uL (130-400) 12/27/23 04:50
Sodium 124 mmol/L (135-145) L 12/27/23 04:50
Potassium 4.2 mmol/L (3.5-5.1) 12/27/23 04:50
Chloride 89 mmol/L (98-107) L 12/27/23 04:50
Carbon Dioxide 30 mmol/L (22-30) 12/27/23 04:50
BUN 14 mg/dl (7-17) 12/27/23 04:50
Creatinine 0.6 mg/dL (0.6-1.0) 12/27/23 04:50
eGFR > 60.00 12/27/23 04:50
Glucose 97 mg/dl (70-99) 12/27/23 04:50
Calcium 9.9 mg/dl (8.4-10.2) 12/27/23 04:50
Phosphorus 3.6 mg/dl (2.5-4.5) 12/27/23 04:50
Albumin 4.9 g/dl (3.5-5.0) 12/23/23 15:19
Physical Exam
-
Vital Signs:
Vital Signs
Temp Pulse Resp BP Pulse Ox
98.4 F 76 12 125/59 96
12/27/23 08:12 12/27/23 04:00 12/27/23 04:00 12/27/23 04:00 12/27/23 02:00
Cardiovascular:: Regular rate and rhythm
Respiratory:: Bilateral: Coarse
Lung Excursion:: Normal
Abdomen:: Nontender and Soft
Bowel Sounds:: Normal
Extremity Edema:: None: Bilateral:
[2023-12-27] MEDS: LASIX 20 MG PO (10:31)
[2023-12-27] MEDS: SODIUM CHLORIDE 1 GRAM PO ×2 (10:31→20:53)
--- NOTE | 2023-12-27 10:44 | W.PN.NEURO.1 ---
Today's Communication / Plan
-
-Neurologic checks
-Follow sodium
-Switch Lacosamide to 100 mg PO BID, will consider stopping before discharge as her sodium hopefully normalizes
Will follow
Neuro Assessment/Plan
Assessment
CT head noncontrast unremarkable no acute changes of stroke or hemorrhage
CTA head and neck no intracranial occlusion or carotid stenosis or occlusion seen
Impressions
1. Encephalopathy is highly likely to be due to profound symptomatic hyponatremia. She has had a convulsive seizure and nonconvulsive seizure activity seen on EEG, provoked by her hyponatremia.
2. Patient has history of paranoid schizophrenia maintained on snf antipsychotics
3. 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
Rhythmic blinking may be a dyskinesia from antipsychotic use or automatism from schizophrenia, shows no epileptiform changes when caught on cEEG, is not a seizure
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 SSRI, HCTZ, Amantadine
Mental status improved compared to admission
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
Subjective/Objective
Subjective Data
Date of Service: December 27, 2023
No acute events overnight, patient with no complaints, understands had low salt level that lead to seizures
Objective Data
Vital Signs
Temp Pulse Resp BP Pulse Ox
98.4 F 120 18 110/38 99
12/27/23 08:12 12/27/23 10:31 12/27/23 10:24 12/27/23 10:31 12/27/23 10:17
Lab Results
12/27/23 04:50
12/27/23 04:50
PT 13.1 Sec (11.4-14.6) 12/23/23 15:19
INR 1.01 12/23/23 15:19
APTT 28.5 Sec (23.4-35.0) 12/23/23 15:19
Sodium 124 mmol/L (135-145) L 12/27/23 04:50
Potassium 4.2 mmol/L (3.5-5.1) 12/27/23 04:50
BUN 14 mg/dl (7-17) 12/27/23 04:50
Glucose 97 mg/dl (70-99) 12/27/23 04:50
Calcium 9.9 mg/dl (8.4-10.2) 12/27/23 04:50
Phosphorus 3.6 mg/dl (2.5-4.5) 12/27/23 04:50
LDL Cholesterol, Calc 59 mg/dl 12/23/23 15:19
Vitamin B12 979 pg/ml (239-931) H 12/23/23 15:19
Ur Buprenorphine Negative (Negative) 12/23/23 17:48
Patient Allergies
Pork/Porcine Containing Products Allergy (Verified 12/23/23 22:09)
Diarrhea (ham,aguirre,sausage,pork)
Review of Systems
-
History Source: Patient
All other systems: Reviewed and negative
Constitutional: No Symptoms
EENT: No Symptoms Reported
Respiratory: No Symptoms
Cardiac: No Symptoms
Abdomen/GI: No Symptoms
Genitourinary: No Symptoms
Musculoskeletal: No Symptoms
Skin: No Symptoms
Neuro: Tremors
Endocrine: No Symptoms
Hematologic / Lymphatic: No Symptoms
Allergy / Immunology: No Symptoms
Physical Exam
-
General: No Apparent Distress and Comfortable
Eyes: No Ptosis
HEENT: Normocephalic
Neck: No Bruits Bilaterally
Respiratory: Clear to Auscultation
Cardiac: Regular Rhythm
GI: Normal Bowel Sounds
Skin: Unremarkable
Extremities: No Clubbing
Psych: Negative Confused or Agitated
Extended Neurological Exam
Mood & Affect: Mood Unremarkable and Affect Unremarkable
Attention Span & Concentration: Awake, Alert, Interactive and Other (Conversation appropriate, interacts, fair insight)
Memory: Reduced
Tremor: Other (Tremor of mouth, hands bilaterally at rest)
Speech: Negative Expressive Aphasia or Receptive Aphasia
Cranial Nerve II: Left Eye: Pupillary Reactivity Unremarkable and Pupillary Size Unremarkable
Cranial Nerve II: Right Eye: Pupillary Reactivity Unremarkable and Pupillary Size Unremarkable
Cranial Nerves III, IV, : Extraocular Movement: Extraocular Movement Full in all Directions
Muscle Strength, Overall: Full Throughout
Muscle Bulk & Tone: Other (Mild parkinsonism, cogwheeling in wrists more on right, resting tremor of hands bilaterally)
Deep Tendon Reflexes: Trace Throughout
Touch Sensation: Unremarkable
Coordination: [id number] Testing Unremarkable
Data Reviewed
-
CT Head: Report Reviewed and Image Reviewed
MRI Head: Report Reviewed and Image Reviewed
EEG: Report Reviewed
Labs: Report Reviewed
--- NOTE | 2023-12-27 12:23 | W.PN.UPDATE ---
Update Note
Progress Note Update
Pt seen with present. Pt alert, calm, making eye contact, answering questions with slow hesitant speech, but coherent. Pt has history of Schizophrenia; reports she has been stable since placed on the right med combination in
[facility] 12 years ago. Pt is followed at [facility] for med mgt. does not want to change pt's medications, despite education about potential effect on Sodium level as well as EPS. Pt has resting tremor, visible in her legs, hands and
mouth/lips. Tremor is intermittent, reportedly was mild and responded to Amantadine as needed- taken only on occasion per . Pt appears stable, shows not signs of active psychosis or depression. Pt was able to eat a full breakfast.
Imp: Schizophrenia, by history, stable for years on Risperidone and Sertraline
Rec: Will restart Risperidone at lower dose and monitor response, with Cogentin prn for parkinsonism/ resting tremor
Will hold off Sertraline. would like this restarted, but further discussion is needed due to severity of hyponatremia on admission
Return to outpatient follow up at [facility] when medically stable. Will follow
--- NOTE | 2023-12-27 14:07 | CM ---
CM following re:discharge planning.
Discussed in Rounds, reviewed pt's chart, met with pt.
PT and OT evaluations noted - SNF level of care recommended. CM discussed it with the [t, pt expressed her agreement. A list of SNFs provided. [facility] SM[facility] or [facility]F. A referral to
above SNFs made.
pt stated she still will discuss with her to whether or not she will go to a SNF for a short term rehab.
D/C plan: preferred SNF.
CM will follow to assist pt with discharge to a preferred SNF.
[2023-12-27] MEDS: LOVENOX 40 MG SC (17:07)
[2023-12-27] MEDS: COGENTIN 0.5 MG PO (17:18)
[2023-12-27] MEDS: VIMPAT 100 MG PO (20:53)
[2023-12-27] MEDS: RISPERDAL 3 MG PO (21:53)
[2023-12-28] VITALS (7 sets, daily range): BP systolic 120–173; BP diastolic 82–108; PULSE 97; BMI 25.4
[2023-12-28 06:01] LABS: Blood Urea Nitrogen 14 mg/dl (7-17); Calcium 10.1 mg/dl (8.4-10.2); Carbon Dioxide 30 mmol/L (22-30); Chloride 92 mmol/L (98-107); Estimated Creatinine Clearance 59 ml/min; Glucose 84 mg/dl (70-99); Sodium 129 mmol/L (135-145); eGFR > 60.00
[2023-12-28] MEDS: LASIX 20 MG PO (07:45)
[2023-12-28] MEDS: THERAGRAN 1 TABLET PO (07:45)
[2023-12-28] MEDS: SODIUM CHLORIDE 1 GRAM PO ×2 (07:45→20:10)
[2023-12-28] MEDS: VIMPAT 100 MG PO (07:45)
--- NOTE | 2023-12-28 08:18 | W.PN.NEURO.1 ---
Today's Communication / Plan
-
-Stop Lacosamide and monitor off seizure medications with sodium improving and no longer in severely low range
-Audrey GONZALEZN started by psychiatry for drug induced parkinsonism/Extrapyramidal symptoms from antipsychotics used
-Monitor sodium with Risperdal restarted
-Would remain off Amantadine moving forward
Will follow as needed call with questions and concerns
Neuro Assessment/Plan
Assessment
CT head noncontrast unremarkable no acute changes of stroke or hemorrhage
CTA head and neck no intracranial occlusion or carotid stenosis or occlusion seen
Impressions
1. Encephalopathy is highly likely to be due to profound symptomatic hyponatremia. She has had a convulsive seizure and nonconvulsive seizure activity seen on EEG, provoked by her hyponatremia.
2. 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
3. 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
Rhythmic blinking may be a dyskinesia from antipsychotic use or automatism from schizophrenia, shows no epileptiform changes when caught on cEEG, is not a seizure
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 SSRI, HCTZ, Amantadine
Mental status improved compared to admission
MRI brain with and without contrast no observed structural abnormalities of INOCULATOR
Plan
Recommendations:
1. continuous EEG; continue Keppra 1500mg q12 while still at risk for seizures; added on Vimpat 150mg q12 starting last night; rescue Ativan ordered for any further seizures
2. sodium improving; nephro managing; avoid rapid correction
3. Hold any further doses of amantadine
4. Neurologic checks
5. will need an MRI brain when able
Reviewed with patient's at bedside, Dr. Kyle, nursing and nephro.
Critical care time 30 mins
Subjective/Objective
Subjective Data
Date of Service: December 28, 2023
No acute events, has tremor, no seizures seen
Objective Data
Vital Signs
Temp Pulse Resp BP Pulse Ox
97.9 F 83 16 147/85 100
12/28/23 03:10 12/28/23 03:10 12/28/23 03:10 12/28/23 03:10 12/28/23 03:10
Lab Results
12/27/23 04:50
12/28/23 05:21
PT 13.1 Sec (11.4-14.6) 12/23/23 15:19
INR 1.01 12/23/23 15:19
APTT 28.5 Sec (23.4-35.0) 12/23/23 15:19
Sodium 129 mmol/L (135-145) L 12/28/23 05:21
Potassium 4.0 mmol/L (3.5-5.1) 12/28/23 05:21
BUN 14 mg/dl (7-17) 12/28/23 05:21
Glucose 84 mg/dl (70-99) 12/28/23 05:21
Calcium 10.1 mg/dl (8.4-10.2) 12/28/23 05:21
Phosphorus 3.6 mg/dl (2.5-4.5) 12/27/23 04:50
LDL Cholesterol, Calc 59 mg/dl 12/23/23 15:19
Vitamin B12 979 pg/ml (239-931) H 12/23/23 15:19
Ur Buprenorphine Negative (Negative) 12/23/23 17:48
Patient Allergies
Pork/Porcine Containing Products Allergy (Verified 12/23/23 22:09)
Diarrhea (ham,aguirre,sausage,pork)
Review of Systems
-
History Source: Patient
All other systems: Reviewed and negative
Constitutional: No Symptoms
EENT: No Symptoms Reported
Respiratory: No Symptoms
Cardiac: No Symptoms
Abdomen/GI: No Symptoms
Genitourinary: No Symptoms
Musculoskeletal: No Symptoms
Skin: No Symptoms
Neuro: Tremors
Endocrine: No Symptoms
Hematologic / Lymphatic: No Symptoms
Physical Exam
-
General: Comfortable
Eyes: No Ptosis
HEENT: Normocephalic
Neck: No Bruits Bilaterally
Respiratory: Clear to Auscultation
Cardiac: Regular Rhythm
GI: Normal Bowel Sounds
Skin: Unremarkable
Extremities: No Clubbing
Psych: Intact Judgement/Insight; Negative Agitated
Extended Neurological Exam
Attention Span & Concentration: Awake, Alert, Interactive and No Difficulty with 2 Step Request
Memory: Reduced
Tremor: Head Tremor Absent, At Rest and Other (Bilateral hand tremor)
Speech: Negative Expressive Aphasia or Receptive Aphasia
Cranial Nerve II: Left Eye: Pupillary Reactivity Unremarkable and Pupillary Size Unremarkable
Cranial Nerve II: Right Eye: Pupillary Reactivity Unremarkable and Pupillary Size Unremarkable
Cranial Nerves III, IV, : Extraocular Movement: Extraocular Movement Full in all Directions
Cranial Nerve VII: Facial Symmetry: Normal Facial Symmetry
Cranial Nerve XII: Tongue Protusion: Midline
Muscle Strength, Overall: Full Throughout
Muscle Bulk & Tone: Bulk Unremarkable
Data Reviewed
-
CT Head: Report Reviewed and Image Reviewed
MRI Head: Report Reviewed and Image Reviewed
EEG: Report Reviewed
--- NOTE | 2023-12-28 09:03 | W.PN.HOSP.TC ---
Addendum entered and electronically signed by Agus Estevez MD 12/28/23 13:11:
updated today- he's not keen on rehab rather home hh
Original Note:
Today's Communication/Plan
-
Monitor sodium. Discharge planning in progress.
Assessment / Plan
Assessment / Plan
Gen: NAD, AAOx2-3, NCAT
Eyes: EOMI, PERRLA, no scleral icterus.
Neck: supple.
CV: RRR, +S1/S2, no m/r/g.
Resp: CTAB, no rales, wheezes, or rhonchi.
Abd: +BS, soft, NT, ND
Skin: No rashes.
Neuro: CN 2-12 intact, non-focal, diffuse intermittent resting tremor.
Psych: slow hesitant speech, holds conversations, no agitations or hyperactivity. No delusions or hallucinations.
EEG: abnormal due to the presence of both nonconvulsive and convulsive seizure activity
A/P:
Hyponatremia:
Sodium 129 today
Continue fluid restriction
Started on salt tablets 1 g twice a day
Continue Lasix 20 mg daily
Monitor sodium
PT OT and they recommend skilled rehab
Hypotension:
Improved
Off pressors
Seizures:
Discontinued all AED
Brain MRI no acute abnormalities and some cervical disc pathology.
Paranoid Schizophrenia:
Psych input appreciated
Restarted Risperdal
Hold off on sertraline
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
-Holding amantadine
-Might be able to use Cogentin as needed
Essential Hypertension
-HCTZ stopped due hyponatremia (will never restart)
-Holding amlodipine and losartan
FULL/Lovenox
Anticipated Discharge: 24 - 48 hours
Subjective/Interval History
-
Date of Service: December 28, 2023
Patient alert. No seizures. Complains of shakiness that she used to take amantadine for and explained to her that we have Cogentin that she can use
Objective Data
-
Labs:
Laboratory Results
12/28/23
05:21
Sodium 129 L
Potassium 4.0
Chloride 92 L
Carbon Dioxide 30
BUN 14
Creatinine 0.8
Glucose 84
Calcium 10.1
Vital Signs:
Vital Signs
Temp Pulse Resp BP Pulse Ox
98.4 F 88 17 136/83 97
12/28/23 07:00 12/28/23 07:00 12/28/23 07:00 12/28/23 07:00 12/28/23 07:00
I&O
12/27/23 12/28/23 12/29/23
06:59 06:59 06:59
Intake Total 700 / 820 1080 / 1080
Output Total 650 / 950 300 / 300
Balance 50 / -130 780 / 780
Review of Systems
-
All other systems: Reviewed and negative
--- NOTE | 2023-12-28 10:58 | W.PN.NEPH.PH ---
Today's Communication / Plan
-
Maintain current therapy follow-up BMP
Assessment/Plan
-
Impression:
Metabolic encephalopathy with profound hyponatremia (106)
History of hypertension
History of paranoid schizophrenia
Plan:
-salt 1 gm BID
-lasix 20mg daily
-Would not restart SSRI
-follow BMP
-
-
Date of Service: December 28, 2023
CC / HPI / ROS
-
Chief Complaint:
Hyponatremia
History of Present Illness:
Serum sodium now up to 129 and stable
No seizure activity overnight
BP stable
Review of Systems:
Nonoliguric
No chest pain or shortness of breath
c/o blurry vision, shakes
Labs
-
Labs:
WBC 7.1 10^3/uL (4.8-10.8) 12/27/23 04:50
RBC 3.00 10^6/uL (4.20-5.40) L 12/27/23 04:50
Hgb 9.3 g/dL (12.0-16.0) L 12/27/23 04:50
Hct 25.4 % (37.0-47.0) L 12/27/23 04:50
Plt Count 262 10^3/uL (130-400) 12/27/23 04:50
Sodium 129 mmol/L (135-145) L 12/28/23 05:21
Potassium 4.0 mmol/L (3.5-5.1) 12/28/23 05:21
Chloride 92 mmol/L (98-107) L 12/28/23 05:21
Carbon Dioxide 30 mmol/L (22-30) 12/28/23 05:21
BUN 14 mg/dl (7-17) 12/28/23 05:21
Creatinine 0.8 mg/dL (0.6-1.0) 12/28/23 05:21
eGFR > 60.00 12/28/23 05:21
Glucose 84 mg/dl (70-99) 12/28/23 05:21
Calcium 10.1 mg/dl (8.4-10.2) 12/28/23 05:21
Phosphorus 3.6 mg/dl (2.5-4.5) 12/27/23 04:50
Albumin 4.9 g/dl (3.5-5.0) 12/23/23 15:19
Physical Exam
-
Vital Signs:
Vital Signs
Temp Pulse Resp BP Pulse Ox
98.4 F 88 17 136/83 97
12/28/23 07:00 12/28/23 07:00 12/28/23 07:00 12/28/23 07:00 12/28/23 07:00
Cardiovascular:: Regular rate and rhythm
Respiratory:: Bilateral: CTA
Lung Excursion:: Normal
Abdomen:: Nontender and Soft
Bowel Sounds:: Normal
Extremity Edema:: None: Bilateral:
Mckenna Catheter: No
[2023-12-28] MEDS: LOVENOX 40 MG SC (17:14)
--- NOTE | 2023-12-28 17:25 | W.PN.UPDATE ---
Update Note
Progress Note Update
Pt seen at bedside - sitting watching TV and eating lunch. Pleasant, with moderate insight and some loose thought process. 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 Is oriented. As previously reports that she was taking amantadine prn and had found this helpful however she struggled to discuss medication beyond this. Sodium improving but still low, would continue to
defer sertraline. Pt appears to be in good spirits, no active delusions or hallucinations noted, would continue on current regimen at this time.
Imp: Schizophrenia, by history, stable for years on Risperidone and Sertraline
Rec: Continue Risperidone 3mg HS, monitor response, with Cogentin prn for parkinsonism/ resting tremor
Defer Sertraline.
Return to outpatient follow up at [facility] when medically stable. Will follow
[2023-12-28] MEDS: RISPERDAL 3 MG PO (21:30)
[2023-12-29 03:11] VITALS: BP 115/61
[2023-12-29 06:00] VITALS: BMI 26.1
[2023-12-29 07:17] LABS: Blood Urea Nitrogen 14 mg/dl (7-17); Calcium 10.1 mg/dl (8.4-10.2); Carbon Dioxide 31 mmol/L (22-30); Chloride 93 mmol/L (98-107); Estimated Creatinine Clearance 68 ml/min; Glucose 86 mg/dl (70-99); Potassium 3.9 mmol/L (3.5-5.1); Sodium 132 mmol/L (135-145); eGFR > 60.00
[2023-12-29 07:33] VITALS: BP 156/89
[2023-12-29] MEDS: THERAGRAN 1 TABLET PO (07:39)
[2023-12-29] MEDS: LASIX 20 MG PO (07:39)
[2023-12-29] MEDS: SODIUM CHLORIDE 1 GRAM PO (07:39)
--- NOTE | 2023-12-29 08:07 | W.PN.HOSP.TC ---
Today's Communication/Plan
-
Continue current management. Discharge planning in progress.
Assessment / Plan
Assessment / Plan
Gen: NAD, AAOx2-3, NCAT
Eyes: EOMI, PERRLA, no scleral icterus.
Neck: supple.
CV: RRR, +S1/S2, no m/r/g.
Resp: CTAB, no rales, wheezes, or rhonchi.
Abd: +BS, soft, NT, ND
Skin: No rashes.
Neuro: CN 2-12 intact, non-focal, diffuse intermittent resting tremor.
Psych: holds conversations, no agitations or hyperactivity. No delusions or hallucinations.
EEG: abnormal due to the presence of both nonconvulsive and convulsive seizure activity
A/P:
Hyponatremia:
Sodium 132 today
Continue fluid restriction
Started on salt tablets 1 g twice a day
Continue Lasix 20 mg daily
Monitor sodium
PT OT and they recommend skilled rehab but patient and do not want to go to rehab and rather wants to go home.
Reach out to nephrology and they are okay with discharge from their standpoint today
Hypotension:
Improved
Off pressors
Seizures:
Discontinued all AED
Brain MRI no acute abnormalities and some cervical disc pathology.
Paranoid Schizophrenia:
Psych input appreciated
Restarted Risperdal
Hold off on sertraline
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
-Holding amantadine
-Might be able to use Cogentin as needed
Essential Hypertension
-HCTZ stopped due hyponatremia (will never restart)
-Holding amlodipine and losartan
FULL/Lovenox
Anticipated Discharge: Today
Subjective/Interval History
-
Date of Service: December 29, 2023
Patient no new complaints. She is eager to go home today.
Objective Data
-
Labs:
Laboratory Results
12/29/23
06:30
Sodium 132 L
Potassium 3.9
Chloride 93 L
Carbon Dioxide 31 H
BUN 14
Creatinine 0.7
Glucose 86
Calcium 10.1
Vital Signs:
Vital Signs
Temp Pulse Resp BP Pulse Ox
98.4 F 77 17 156/89 99
12/29/23 07:33 12/29/23 07:33 12/29/23 07:33 12/29/23 07:33 12/29/23 07:33
I&O
12/28/23 12/29/23 12/30/23
06:59 06:59 06:59
Intake Total 1080 / 1080 680 / 680
Output Total 300 / 300
Balance 780 / 780 680 / 680
--- NOTE | 2023-12-29 12:21 | W.DCSUMMARY ---
Discharge Summary
Discharge Data
Date of Admission: 12/23/23
Date of Discharge: 12/29/23
-
Pending Results: No
Hospital Course
Patient is 58 years old female with history of hypertension, schizophrenia, presented to the hospital with altered mental status and had witnessed seizures. Patient was found to have severe hyponatremia. Policy Intern, bottler helper, psychiatrist,
and neurology were consulted. Patient was started on antiseizure medications but subsequently discontinued since it was felt that the trigger was the hyponatremia. Hydrochlorothiazide also was discontinued. Patient was started on 3% saline and
subsequent to this continue as well and then placed on salt tablets and oral diuretics. CT scan of the head and MRI of the brain unremarkable. SSRI and amantadine were completely discontinued. Family wanted to restart SSRI but we strongly advised
against it. Risperidone was held but later on was restarted at a lower dose. Amlodipine and losartan were held but later on were restarted. Also instead of amantadine, Cogentin was started. Patient sodium improved to the point that sodium went
up to 132 (keep in mind sodium was as low as 106). PT OT recommended skilled rehab but patient and declined this option and she wanted to go home with home health. I reached out to nephrology who cleared her for discharge today. No other
events were noticed. Patient is back close to her baseline and she wants to go home today. She is going to be discharged in stable condition today.
Discharge duration: 36 minutes
Discharge Plan
-
Patient Disposition: Home with Home Care
Discharge Diagnosis/Procedures: Severe hyponatremia. Shock. Seizures. Paranoid schizophrenia. Drug-induced extrapyramidal symptoms. Hypertension
Diet: Low Cholesterol and Restrict fluids to 48 oz
Activity: As tolerated
Blood Work: Please PCP to order BMP within 1 week.
Referrals:
Luan Marquez MD [Active] - in four to six weeks
Salvador Finn MD [Active] - in two to four weeks
Christopher Rowe DO [Active] - in four to six weeks
Genesis Harris MD [Family Provider] - in less than 1 week
Prescriptions:
New
benztropine 0.5 mg Tablet
0.5 mg PO BIDPRN PRN (Reason: resting tremor/EPS) 30 Days Qty: 30 0RF
furosemide 20 mg Tablet
20 mg PO DAILY 30 Days Qty: 30 0RF
risperidone 1 mg Tablet
3 mg PO HS 30 Days Qty: 90 0RF
sodium chloride 1,000 mg Tablet,Soluble
1,000 mg PO BID Qty: 60 0RF
Continued
multivitamin Tablet
1 tab PO DAILY
amlodipine 10 mg tablet
10 mg PO DAILY
losartan 100 mg tablet
100 mg PO DAILY
Discontinued
hydrochlorothiazide 50 mg tablet
25 mg PO DAILY
sertraline 100 mg tablet
100 mg PO QPM
risperidone 3 mg tablet
1.5 mg PO NOON
risperidone 3 mg tablet
4.5 mg PO QPM
Discharge Orders:
Discharge Patient (As Directed); Ordered 12/29/23
Ordered By: Agus Estevez
Discharge Date and Time
Discharge Date/Time: 12/29/23 13:14
Print Language: HEBREW
--- NOTE | 2023-12-29 12:59 | CM ---
Reviewed chart, spoke with RN and attending. Patient medically cleared for discharge. IMM provided and signed and is on chart.
Placed a call to Kenyetta in admissions at [facility] to update that patient will be going home instead of SNF.
Plan: Case management will continue to follow and assist with discharge planning. Patient's spouse opting to take her home.
[2023-12-29 13:05] VITALS: BP 144/88
--- NOTE | 2023-12-29 13:17 | PTCARENOTE ---
Pt and demanded to be discharged immediately. Attempted to explain to pt and that there were outstanding medications in pharmacy review that should be taken prior to discharge. Pt and refused to wait and demanded to be
discharged. Discharge medications and instructions reviewed with pt and . All questions answered.
== END 2023-12-29 13:14 | disposition home or self-care (01) | DRG 640 ==
LOC: 3 WEST ACU 17:08
PROVIDERS: Internal Medicine Critical Care Medicine; Nurse Practitioner Family; Physician Assistant Medical; Registered Nurse Critical Care Medicine; Specialist; ADMITTING PHYSICIAN Internal Medicine; ATTENDING PHYSICIAN Hospitalist; CONSULT PHYSICIAN Internal Medicine Pulmonary Disease; CONSULT PHYSICIAN Specialist; CONSULT PHYSICIAN Student in an Organized Health Care Education/Training Program; EMERGENCY PHYSICIAN Emergency Medicine; FAMILY PHYSICIAN Internal Medicine
DX: E87.1 Hypo-osmolality and hyponatremia (principal); G93.41 Metabolic encephalopathy; F20.0 Paranoid schizophrenia; G21.19 Other drug induced secondary parkinsonism; Z79.82 Long term (current) use of aspirin; I10 Essential (primary) hypertension; G40.901 Epilepsy, unspecified, not intractable, with status epilepticus
CPT/HCPCS: 70450; 70496; 70498; 70553; 71045; 80048; 80051; 80053; 80061; 80306; 81003; 82077; 82533; 82570; 82607; 82728; 82746; 83036; 83540; 83550; 83735; 83935; 84100; 84300; 84443; 84484; 85025; 85027; 85610; 85730; 92526; 92610; 93005; 95714; 95816; 96361; 96374; 96375; 97116; 97163; 97167; 97530; 99291; A9575; C9254; Q9967